=== PATIENT | female | born 1995 | race Hispanic/Latino ===

== ENCOUNTER 2017-10-18 11:53 | Emergency (ER) | payer MEDICAID, OTHER ==
[2017-10-18 13:06] LABS: Bilirubin Negative (Negative); Blood, Urine Negative (Negative); Glucose, Urine (Dipstick) Negative (Negative); Ketone, Urine Negative (Negative); Nitrite Negative (Negative); Protein, Urine (Dipstick) Negative (Neg-Trace); Urobilinogen 0.2 mg/dL (0.2-1.0)
== END 2017-10-18 13:41 | disposition home or self-care (01) ==
LOC: ERS 11:53
DX: Z04.3 Encounter for examination and observation following other accident (principal); Z3A.08 8 weeks gestation of pregnancy
CPT/HCPCS: 36415; 81003; 84702; 86900; 86901; 99284

== ENCOUNTER 2018-04-10 12:20 | Observation (INO) | payer OTHER ==
[2018-04-10 12:58] VITALS: BMI 23.0
--- NOTE | 2018-04-10 13:44 | PDOC.LDHP ---
Labor and Delivery H&P Chief complaint: contractions, other (Nausea/Vomiting) HPI: 22 y/o @ 31.5 WGA by 15.3 wk tigre presents with N/V that started last night and worsened ctx this AM. The patient reports that last night she suddenly started having N/V and has had 7 episodes of emesis since that time. She has been unable to tolerate PO. She reports that she has been having on and off ctx the past 4 days, but today they have become more regular and increased in intensity, so she decided to come in. She denies LOF, vaginal bleeding, and reports good movement. She reports vaginal d/c that is green and has been going on for about a week. She was supposed to be on metronidazole for BV that was diagnosed in the office by [facility], but she hasn't started taking it yet due to her N/V. She reports some RUQ pain that was sharp and only lasted a couple of minutes this afternoon. She denies any fevers, chills, diarrhea, dysuria. Current gestational age (weeks): 31 (31w5d) Due date: 06/07/18 Dating criteria: second trimester ultrasound Grav: 3 Para: 2 OB History Details: Term 's Current complications: other (anemia of ) Past Medical History: Anxiety Current medications: pre- vitamins (Not taking), iron, other (Buspirone, Sertraline) Social history: none - Physical Exam Vital signs reviewed and normal: yes General: NAD Heart: RRR Lungs: CTAB Abdomen: gravid Extremeties: no edema FHT: category 1, variability present [place] contractions every: 2-4 minutes - OB Labs Blood type: O RH: positive Antibody Screen: negative HIV: negative RPR: negative HEPSAg: negative Rubella: immune - Assessment 1. Rule-out Pre-term labor Patient is having ctx q2-4 minutes. This is likely 2/2 dehydration from N/V vs BV infection that has not yet been treated. -LR bolus -Will collect FFN and then send pending results of cervical check and cervical length -GC/CT -VP3 -UA -CBC, CMP, Lipase -Zofran prn nausea - monitoring -[place] 2. N/V, abdominal pain Likely 2/2 gastroenteritis, but will r/o more serious causes including pancreatitis, pre-e. -CBC -CMP -Lipase 3. Vaginal Discharge Recent diagnosis of BV that has not been treated with green discharge. -Will check VP3 -GC/CT -UA <Amalia Wilkes - Last Filed: 04/10/18 13:39> <Kristian Owens - Last Filed: 04/10/18 16:42> Allergies/Adverse Reactions: Allergies Allergy/AdvReac Type Severity Reaction Status Date / Time No Known Allergies Allergy Verified 10/13/16 08:19 Attending Addendum - Attending Addendum Date/Time: 04/10/18 1639 I personally evaluated the patient and discussed the management with Dr. Wilkes. I agree with and repeated the History, Examination, Assessment and Plan documented above with any addition or exceptions noted below. Pt contractions with exam help and SVE 1 cm. After IVFB contractions spaced out and no pain with any contractions. She is improving after zofran but still taking small amount of fluid. Will obs her overnight for continued hydration and antiemetics. Almost certainly VGE as her son with similar symptoms 2 days ago. Low suspicion at this time for UTI (no symptoms), biliary pathology, etc. If contractions worsen will recheck and manage PTL with appropriate consultation if indicated. Monitoring q shift. <Kristian Owens - Last Filed: 04/10/18 16:42>
[2018-04-10] MEDS ORDERED: Lactated Ringer's 1,000 ML IV SCH ×2 (13:45→14:45)
[2018-04-10 14:08] LABS: #Basophils 0.1 thou/uL (0.0-0.2); #Eosinphils 0.2 thou/uL (0.0-0.7); #Lymphocytes 1.6 thou/uL (1.20-3.40); #Monocytes 0.7 thou/uL (0.11-0.59); #Neutrophils 8.6 thou/uL (1.40-6.50); %Basophils 0.5 % (0.0-1.0); %Lymphocytes 14.4 % (28.0-48.0); %Monocytes 5.8 % (0.0-4.0); %Neutrophils 77.3 % (31.0-61.0); Mean Corpuscular HGB CONC 33.1 g/dL (32.0-36.0); Mean Corpuscular Volume 66.3 fl (77.0-87.0); Mean Platelet Volume 8.2 fL (7.4-10.4); Platelet Count 289 thou/uL (130-400); RBC Distribution Width 15.5 % (11.5-14.5); Red Blood Cell (RBC) Count 4.55 mill/uL (4.00-5.20); White Blood Cell (WBC) Count 11.2 thou/uL (4.8-10.8)
[2018-04-10] MEDS: Ondansetron ODT 8 MG TAB SL PRN (14:32)
[2018-04-10 14:33] LABS: ALT (SGPT) 9 U/L (8-55); AST (SGOT) 21 U/L (5-34); Albumin 3.6 g/dL (3.5-5.0); Alkaline Phosphatase 154 U/L (40-150); Anion Gap 14 mmol/L (10-20); BUN (Urea Nitrogen) 4 mg/dL (7.0-18.7); Bilirubin, Total 0.6 mg/dL (0.2-1.2); Calc. Creatinine Clearance 148 mL/min (70-130); Calcium 8.8 mg/dL (7.8-10.44); Carbon Dioxide 19 mmol/L (22-29); Chloride 105 mmol/L (98-107); Estimated GFR-MDRD Greater than 90; Globulin 3.3 g/dL (2.4-3.5); Glucose 81 mg/dL (70-105); Lipase 66 U/L (8-78); Potassium 3.8 mmol/L (3.5-5.1); Protein, Total 6.9 g/dL (6.0-8.3); Sodium 134 mmol/L (136-145)
[2018-04-10 15:20] LABS: Bilirubin Negative (Negative); Blood, Urine Negative (Negative); Clarity CLEAR (Clear); Glucose, Urine (Dipstick) Negative (Negative); Leukocyte Moderate (Negative); Nitrite Negative (Negative); Protein, Urine (Dipstick) Negative (Neg-Trace); Specific Gravity, Urine 1.008 (1.002-1.036); Urobilinogen 0.2 mg/dL (0.2-1.0); pH, Urine 6.5 (5.0-9.0)
[2018-04-10 15:22] LABS: Bacteria/HPF None Seen HPF (None Seen); Hyaline Casts/LPF 0-3 HYALINE CAST LPF (0-3 Hyaline); RBC/HPF 0-3 HPF (0-3); Squamous Epithelial 0-3 HPF (0-3)
--- NOTE | 2018-04-10 16:53 | PDOC.EVN ---
Event Note - Event Note Event Note: Patient has improved with IVF hydration, but is still having nausea. She is still showing ctx on the monitor, but is not feeling them and they have spaced out. Her cervical exam was . The VP3 showed marlin and gardnerella. She is s/p 2L LR boluses and 1 dose of zofran. She is tolerating some PO at this time, but having some nausea with it. She informed us that her son just had gastroenteritis 2 days ago. -Will obs overnight and give IVF and zofran prn nausea as pt still appears dry on exam and isn't tolerating PO very well yet. -Will treat vaginal infections with diflucan and metronidazole. <Amalia Wilkes - Last Filed: 04/10/18 16:49> Attending Addendum - Attending Addendum Date/Time: 04/11/18 0904 I personally evaluated the patient and discussed the management with Dr. Wilkes. I agree with the History, Examination, Assessment and Plan documented above with any addition or exceptions noted below. <Kristian Owens - Last Filed: 04/11/18 09:04>
[2018-04-10] MEDS: Lactated Ringer's 1,000 ML IV SCH (19:41)
[2018-04-11] MEDS: Fluconazole 100 MG TAB PO SCH ×2 (01:31→04:54)
[2018-04-11] MEDS: metroNIDAZOLE 500 MG TAB PO SCH ×2 (01:32→08:42)
[2018-04-11] MEDS: Lactated Ringer's 1,000 ML IV SCH (01:32)
[2018-04-11] MEDS: Ondansetron ODT 8 MG TAB SL PRN (04:54)
--- NOTE | 2018-04-11 07:23 | PDOC.FM ---
- Subjective Subjective: Patient reports improvement in her nausea with the Zofran. She does reports new onset diarrhea. She said she was able to tolerate some food and water last night. She reports that her ctx stopped altogether last night and never returned. She is having good movement. She denies any loss of fluids. She denies fevers, chills, or any further episodes of emesis. - Objective MAR Reviewed: Yes Vital Signs & Weight: Vital Signs (12 hours) Temp Pulse Resp BP BP 04/11/18 04:54 98.3 F 73 16 90/44 L 04/10/18 23:30 98.0 F 76 16 94/48 L 04/10/18 19:40 98.4 F 92 16 97/49 L Weight Weight 60.781 kg I&O: 04/10/18 04/11/18 04/12/18 06:59 06:59 06:59 Intake Total 2583 Balance 2583 Result Diagrams: 04/10/18 14:00 04/10/18 14:00 <Amalia Wilkes - Last Filed: 04/11/18 07:19> - Objective Vital Signs & Weight: Vital Signs (12 hours) Temp Pulse Resp BP BP 04/11/18 08:58 97.8 F 75 20 100/55 L 04/11/18 04:54 98.3 F 73 16 90/44 L 04/10/18 23:30 98.0 F 76 16 94/48 L Weight Weight 60.781 kg I&O: 04/10/18 04/11/18 04/12/18 06:59 06:59 06:59 Intake Total 2583 Balance 2583 Result Diagrams: 04/10/18 14:00 04/10/18 14:00 <Kristian Owens - Last Filed: 04/11/18 09:53> Phys Exam - Physical Examination Constitutional: NAD HEENT: moist MMs Respiratory: no wheezing, no rales, no rhonchi, clear to auscultation bilateral Cardiovascular: RRR, no significant murmur, no rub Gastrointestinal: soft, non-tender, positive bowel sounds gravid Musculoskeletal: no edema, pulses present Neurological: non-focal, moves all 4 limbs Psychiatric: normal affect, A&O x 3 Skin: normal turgor, cap refill <2 seconds <Amalia Wilkes - Last Filed: 04/11/18 07:19> Dx/Plan (1) Mild dehydration Code(s): E86.0 - DEHYDRATION Status: Acute (2) Gastroenteritis Code(s): K52.9 - NONINFECTIVE GASTROENTERITIS AND COLITIS, UNSPECIFIED Status : Acute (3) Bacterial vaginosis Code(s): N76.0 - ACUTE VAGINITIS; B96.89 - OTH BACTERIAL AGENTS THE CAUSE OF DISEASES CLASSD ELSWHR Status: Acute (4) Vulvovaginal candidiasis Code(s): B37.3 - CANDIDIASIS OF VULVA AND VAGINA Status: Acute - Plan Plan: 1. Mild Dehydration s/p 2L LR boluses. Was having ctx, but these have stopped. -LR @ 125, will d/c this AM -Encourage PO hydration -Zofran prn nausea 2. Gastroenteritis Pt had son with gastoenteritis two days prior. She had 7 episodes of emesis prior to admission and now is having diarrhea as well. -Zofran prn nausea -Regular diet -Encourage hydration 3. Bacterial Vaginosis -Flagyl 4. Vulvovaginal Candidiasis -Diflucan x1 Dispo: d/c home today with close outpatient f/u and return precautions <Amalia Wilkes - Last Filed: 04/11/18 07:19> Attending Addendum - Attending Addendum Date/Time: 04/11/18 0952 I personally evaluated the patient and discussed the management with Dr. Wilkes and team. I agree with and repeated the History, Examination, Assessment and Plan documented above with any addition or exceptions noted below. Pt improved, asking to go home. Same symptoms as son from 2-3 days ago. No f/ c. Nausea is improved. +FM, no contractions or LOF. Some cramping right after eating an omellete. NAD, resting comfortably RRR s M CTAB s w/r/r or inc wob BS+, NTTP, gravid No edema or cyanosis Ok for d/c. Rx for zofran. Continue flagyl. PV tx for candidiasis. Follow up gc/c. Strict ed precautions discussed and patient voices understanding. <Kristian Owens - Last Filed: 04/11/18 09:53>
[2018-04-11 08:59] VITALS: BP 100/55; TEMP 97.8
--- NOTE | 2018-04-11 21:15 | DIS-2 ---
DATE OF ADMISSION: 04/10/2018 DATE OF DISCHARGE: 04/01/2018 RESIDENT: Amalia Wilkes MD. ATTENNDING: Kristian Owens MD. CONSULTATIONS: None. PROCEDURES: None. PRIMARY DIAGNOSES: 1. Yiuf-be-wisozzqm dehydration. 2. Acute gastroenteritis. 3. Bacterial vaginosis. 4. Vulvovaginal candidiasis. 5. Rule out labor. DISCHARGE MEDICATIONS: 1. Zofran 8 mg sublingual b.i.d. p.r.n. 2. Flagyl 500 mg p.o. b.i.d. for 6 days. 3. vitamin 1 tab p.o. daily. 4. Ferrous sulfate 325 mg p.o. b.i.d. with meals. 5. Sertraline 25 mg p.o. daily. 6. Buspirone 7.5 mg p.o. p.r.n. DISCONTINUED MEDICATIONS: None. HISTORY OF PRESENT ILLNESS AND HOSPITAL COURSE: This is a 22-year-old G3, P2-0-0-2, who was admitted at 31 weeks 5 days gestational age by 13.3-week sono who presented with nausea and vomiting. The pa tient was unable to tolerate p.o. and after arriving also developed diarrhea. The patient was found to have contractions that were regular and painful and were every 2-4 minutes. The patient also had a green vaginal discharge for about a week and had been diagnosed with bacterial vaginosis at her [facility] physician's office. The patient was ruled out for labor with a cervical check that was 1, 20 and -3. The patient was given 2 LR boluses and her contractions slowed down and got to wh ere she was not feeling them at all. The patient had labs drawn that showed anemia with hemoglobin o f 10 as well as BV and Chani on her VP3. The patient was treated with Zofran as needed for nausea and was put on LR at 125 for maintenance fluids and was given Flagyl and Diflucan for the vaginal inf ections. The patient improved significantly and stopped zunilda altogether. She was observed ov ernight to make sure that she was able to tolerate p.o. and by morning, she was able to be discharged home with strict return precautions and instructions to finish a prescription for Flagyl. DISPOSITION: Stable. DISCHARGE INSTRUCTIONS: 1. Location: Home. 2. Diet: Regular. 3. Activity: As tolerated. 4. Followup: With Dr. Monroe at [facility] within 7 days.
[2018-04-13 21:13] LABS: GC by PCR Not Detected (NotDetected)
[2018-04-14 12:03] LABS: Chlamydia by PCR Not Detected (NotDetected)
== END 2018-04-11 12:00 | disposition home health service (06) ==
LOC: L&D/OP 12:20 → 3SW 17:11
PROVIDERS: ADMIT Emergency Medicine; ATTEND Emergency Medicine
DX: O99.613 Diseases of the digestive system complicating pregnancy, third trimester (principal); K52.9 Noninfective gastroenteritis and colitis, unspecified; O99.283 Endocrine, nutritional and metabolic diseases complicating pregnancy, third trimester; E86.0 Dehydration; O23.593 Infection of other part of genital tract in pregnancy, third trimester; B37.3 Candidiasis of vulva and vagina; Z3A.31 31 weeks gestation of pregnancy; Z79.899 Other long term (current) drug therapy
CPT/HCPCS: 59025; 80053; 81001; 83690; 85025; 87480; 87491; 87510; 87591; 87660; 96360; 96361; 99285; G0378

== ENCOUNTER 2018-05-13 12:48 | Day surgery (SDC) | payer OTHER ==
[2018-05-13 13:22] LABS: #Basophils 0.1 thou/uL (0.0-0.2); #Eosinphils 0.2 thou/uL (0.0-0.7); #Lymphocytes 2.7 thou/uL (1.20-3.40); #Neutrophils 6.8 thou/uL (1.40-6.50); %Basophils 0.6 % (0.0-1.0); %Eosinophils 2.2 % (0.0-10.0); %Lymphocytes 24.9 % (28.0-48.0); %Neutrophils 63.2 % (31.0-61.0); Hemoglobin 8.8 g/dL (12.0-16.0); Mean Corpuscular HGB CONC 32.5 g/dL (32.0-36.0); Mean Corpuscular Hemoglobin 20.4 pg (25.0-35.0); Mean Platelet Volume 8.8 fL (7.4-10.4); Platelet Count 299 thou/uL (130-400); RBC Distribution Width 15.9 % (11.5-14.5); White Blood Cell (WBC) Count 10.8 thou/uL (4.8-10.8)
[2018-05-13 13:40] LABS: Anisocytosis SLIGHT = 6-15 cells (100X) (0-5/hpf); Hypochromia SLIGHT = 6-15 cells (100X) (0-5/hpf); MDiff Complete? YES; Microcytosis SLIGHT = 6-15 cells (100X) (0-5/hpf); PLT Morphology Comment Appears Adequate; Polychromasia MODERATE = 3-4 cells (100X) (0-2/hpf)
[2018-05-13 13:44] LABS: ALT (SGPT) 7 U/L (8-55); AST (SGOT) 19 U/L (5-34); Albumin 3.4 g/dL (3.5-5.0); Alkaline Phosphatase 168 U/L (40-150); Anion Gap 11 mmol/L (10-20); BUN (Urea Nitrogen) 5 mg/dL (7.0-18.7); Bilirubin, Total 0.3 mg/dL (0.2-1.2); Calc. Creatinine Clearance 0 mL/min (70-130); Calcium 8.7 mg/dL (7.8-10.44); Carbon Dioxide 22 mmol/L (22-29); Chloride 107 mmol/L (98-107); Estimated GFR-MDRD Greater than 90; Globulin 3.7 g/dL (2.4-3.5); Glucose 84 mg/dL (70-105); Potassium 4.2 mmol/L (3.5-5.1); Protein, Total 7.1 g/dL (6.0-8.3); Sodium 136 mmol/L (136-145)
[2018-05-13 14:33] VITALS: BMI 26.4
[2018-05-13 15:34] LABS: Amnisure Test No Membranes Rupture (No Rupture)
[2018-05-13 15:35] LABS: Amnisure Internal Control QC ACCEPTABLE (ACCEPTABLE)
--- NOTE | 2018-05-13 15:38 | PDOC.LDHP ---
Labor and Delivery H&P Chief complaint: loss of fluid, abdominal pain, other HPI: 22yo at 36.3wk by 15.3wk US initially presented to [facility] ED with c/o SOB. Labs wnl aside from hgb 8.8 and cardiac etiology ruled out. She then was sent up to L&D for evaluation of lower abd pain, back pain, pressure with urination, and 2 episodes of leaking "cloudy wet stuff" after urination that began last night. Denies any discharge, VB, n/v/d/c, fevers. Feels occasional B- H ctx but not regular or painful. Endorses nml FM. Current gestational age (weeks): 36 (3 days) Due date: 06/07/18 Dating criteria: second trimester ultrasound (15.3WK) Grav: 3 Para: 2 OB History Details: 2 prior term , no antepartum complication Current complications: other (anemia of ) Abnormal US findings: No Past Medical History: anxiety (has been off meds since OB visit last month) Current medications: none (has not been compliant with PNV or iron) Previous surgical history: none Social history: none - Physical Exam Vital signs reviewed and normal: yes (VSS) General: NAD, resting Heart: RRR Lungs: nonlabored breathing Abdomen: NTTP Extremeties: no edema FHT: category 1 (mod variability, + accels, no decels) [place] contractions every: occasional, irregular w/ uterine irritability - Vaginal Exam cm dilated: 1 Effacement: 25% Station: -3 - OB Labs Blood type: O RH: positive Antibody Screen: negative HIV: negative RPR: negative HEPSAg: negative 1 hour GCT: negative GBS: positive Urine drug screen: not done Rubella: immune - Plan Plan: observation in L&D -: 22yo at 36.3wk by 15.3wk US here for multiple compliants- 1) LOF r/o ROM- check amnisure and urinalysis/ UCx. no discharge noted. 2) Late IUP- uterine irritability but not regular ctx. IVF bolus, push po fluid intake. no signs of active labor currently. continue to monitor. 3) anemia in - counseling psychologist on need for iron therapy compliance 4) round ligament pain- tylenol. <Amalia Peñaloza - Last Filed: 05/13/18 15:54> <Arpita Calvillo - Last Filed: 05/14/18 11:44> Allergies/Adverse Reactions: Allergies Allergy/AdvReac Type Severity Reaction Status Date / Time No Known Allergies Allergy Verified 05/13/18 14:13 Attending Addendum - Attending Addendum Date/Time: 05/13/18 9314 I personally evaluated the patient and discussed the management with Dr. Peñaloza I agree with the History, Examination, Assessment and Plan documented above with any addition or exceptions noted below. Repeat SVE unchanged x 2. Precautions discussed. Earlier event appears to be related to anxiety and panic attacks. Will need follow up with PCP later this week to address. No concerns related to at this time. Ryne <Arpita Calvillo - Last Filed: 05/14/18 11:44>
[2018-05-13] MEDS ORDERED: Sodium Chloride 0.9% 1,000 ML IV SCH (15:45)
[2018-05-13] MEDS ORDERED: Acetaminophen 500 MG TAB PO SCH (16:00)
[2018-05-13 16:09] LABS: Bilirubin Negative (Negative); Blood, Urine Negative (Negative); Clarity CLEAR (Clear); Glucose, Urine (Dipstick) Negative (Negative); Leukocyte Negative (Negative); Nitrite Negative (Negative); Protein, Urine (Dipstick) Negative (Neg-Trace); pH, Urine 6.5 (5.0-9.0)
--- NOTE | 2018-05-13 16:16 | PDOC.EVN ---
Event Note - Event Note Event Note: Pt noted pain to improve with tylenol and IVF bolus of NS. improved uterine irritability. Cat I strip throughout her stay in L&D. Amnisure neg, U/A negative. Counseled on home tx for aches/pains of including increased po fluid intake and tylenol prn pain. Counseled on taking home po iron and pnv. GBS Positive per clinic swab. F/U with PCP as scheduled next week. <Amalia Peñaloza - Last Filed: 05/13/18 16:14> Attending Addendum - Attending Addendum Date/Time: 05/13/18 5826 I personally evaluated the patient and discussed the management with Dr. Peñaloza I agree with the History, Examination, Assessment and Plan documented above with any addition or exceptions noted below. Ok for d/c to home. Status improved. Cervical exam unchanged. Follow up with PCP later this week to discuss anxiety. MercedesMD <Arpita Calvillo - Last Filed: 05/14/18 11:48>
== END 2018-05-13 17:21 | disposition home or self-care (01) ==
LOC: ERS 12:48 → L&D/OP 13:55
PROVIDERS: ATTEND Student in an Organized Health Care Education/Training Program
DX: O99.89 Other specified diseases and conditions complicating pregnancy, childbirth and the puerperium (principal); R10.9 Unspecified abdominal pain; O99.013 Anemia complicating pregnancy, third trimester; Z3A.36 36 weeks gestation of pregnancy
CPT/HCPCS: 36415; 80053; 81003; 84112; 85025; 87086; 93005; 96360; 96361; 99285

== ENCOUNTER 2018-05-23 15:38 | Day surgery (SDC) | payer OTHER ==
--- NOTE | 2018-05-23 16:14 | PDOC.LDHP ---
Addendum entered and electronically signed by Dalia Kebede MD 05/23/18 18: 50: Amnisure negative. VP3 pending. Will discharge patient. Strict return precautions given (including if pt experiences loss of fluid, vaginal bleeding, contractions). Original Note: Labor and Delivery H&P Chief complaint: loss of fluid, decreased movement HPI: Patient is a 22 year old @ 37.6 weeks GA by 15 week US who complains of gush of clear fluid that occurred just after going to the bathroom on Saturday night. She states that she feels like she has been leaking fluid since then. She also complains of decreased movement today. She denies vaginal bleeding and contractions. Current gestational age (weeks): 37 Due date: 06/07/18 Dating criteria: first trimester ultrasound Grav: 3 Para: 2 Current complications: none Abnormal US findings: No (Male fetus) Past Medical History: Gestational anemia Current medications: pre- vitamins Social history: none - Physical Exam Vital signs reviewed and normal: yes General: NAD Heart: RRR Lungs: CTAB Abdomen: NTTP FHT: category 1 [place] contractions every: Irregular - OB Labs Blood type: O RH: positive Antibody Screen: positive HIV: negative 1 hour GCT: negative GBS: positive Rubella: immune - Assessment L&D Assessment: term rupture in membranes (ROM rule out) Sterile Speculum exam revealed copious thin, milky-white discharge filling vaginal vault. Cervix appears open. - Plan Plan: observation in L&D -: - Will rule out prolonged rupture of membranes with Amnisure. - No pooling of clear fluid seen on sterile speculum exam, however discharge may obscure exam. - If amnisure is negative will perform fern test. - BPP/NST for decreased movement. <Dalia Kebede - Last Filed: 05/23/18 16:41> <Arpita Calvillo - Last Filed: 05/23/18 19:05> Allergies/Adverse Reactions: Allergies Allergy/AdvReac Type Severity Reaction Status Date / Time No Known Allergies Allergy Verified 05/13/18 14:13 Attending Addendum - Attending Addendum Date/Time: 05/23/18 1903 I personally evaluated the patient and discussed the management with Dr. Kebede I agree with the History, Examination, Assessment and Plan documented above with any addition or exceptions noted below. Through exam performed. No evidence of ROM. NADEEM = 14 cm. Amnisure negative. Valsalva negative. No pooling on spec. Fundus nontender. No bleeding. NST reactive. Occasional contractions. Os 1 cm. Will d/c patient to home. Strict precautions discussed. Patient to return with any concerns. Ryne <Arpita Calvillo - Last Filed: 05/23/18 19:05>
[2018-05-23 17:02] LABS: Amnisure Internal Control QC ACCEPTABLE (ACCEPTABLE); Amnisure Test No Membranes Rupture (No Rupture)
--- NOTE | 2018-05-23 17:56 | ULT ---
NONSTRESS BIOPHYSICAL PROFILE: 05/23/18 HISTORY: Decreased movement. COMPARISON: None. TECHNIQUE: Nonstress biophysical profile is performed. FINDINGS: Single intrauterine gestation with vertex presentation. Suboptimal evaluation of the cervix due to sh adowing. heart tones with a heart rate between 128 and 133 beats per minute. Amniotic fluid index is 14 cm. Nonstress biophysical profile. tone - 2. breathing -2. movement - 2. Amniotic fluid - 2. Total score 8 out of 8. IMPRESSION: Nonstress biophysical profile with a total score 8 out of 8. POS: [facility]
[2018-05-23 18:33] LABS: Bilirubin Small (Negative); Blood, Urine Negative (Negative); Clarity CLOUDY (Clear); Glucose, Urine (Dipstick) Negative (Negative); Leukocyte Trace (Negative); Nitrite Negative (Negative); Protein, Urine (Dipstick) Trace mg/dL (Neg-Trace); Specific Gravity, Urine 1.026 (1.002-1.036)
[2018-05-23 18:34] LABS: Bacteria/HPF None Seen HPF (None Seen); WBC/HPF 0-3 HPF (0-3)
[2018-05-23 18:39] LABS: Pathc Cast-AUWi Flag 3.48 (0-2.49)
[2018-05-23 18:47] LABS: Crystals/HPF 2+ CA OXALATE HPF (Negative); Hyaline Casts/LPF 0-3 HYALINE CAST LPF (0-3 Hyaline); Other Casts/LPF None Seen LPF (0-3 Hyaline)
[2018-05-23 18:48] LABS: Transitional Epithelial 0-3 HPF (0-3)
== END 2018-05-23 19:05 | disposition home or self-care (01) ==
LOC: L&D/OP 15:38
PROVIDERS: ATTEND Student in an Organized Health Care Education/Training Program
DX: O99.89 Other specified diseases and conditions complicating pregnancy, childbirth and the puerperium (principal); N89.8 Other specified noninflammatory disorders of vagina; O36.8130 Decreased fetal movements, third trimester, not applicable or unspecified; Z79.899 Other long term (current) drug therapy; Z3A.37 37 weeks gestation of pregnancy
CPT/HCPCS: 76819; 81003; 81015; 84112; 87480; 87510; 87660; 99285

== ENCOUNTER 2018-05-29 14:29 | Inpatient (IN) | payer OTHER ==
--- NOTE | 2018-05-29 16:02 | PDOC.LDHP ---
Addendum entered and electronically signed by Celi Alatorre MD 05/29/18 16:20 : Cervix check @ 1615 is 4.5/75%/-2. Will admit and start PCN PPX. Re-assess in 2 hours unless indicated sooner. Original Note: Labor and Delivery H&P HPI: Patient is a 22 yr old F at 38.1wks by 15.1 wk US. Patient began experiencing painful contractions since 0900 this morning that were about 5 min apart. They have become closer to 2-3 min apart in the last few hours. The patient denies any loss of fluid or leakage of blood. She is GBS (+) and a history of quick labors. She denies headache, fever, changes in vision, or lower extremity edema. Current gestational age (weeks): 38 Due date: 06/07/18 Dating criteria: first trimester ultrasound Grav: 3 Para: 2 OB History Details: 2 prior pregnancies. No complications. History for being around 4 hours total. GBS (+) Current complications: none Abnormal US findings: No Past Medical History: Anxiety - currently not experiencing any anxiety Current medications: pre- vitamins, iron (Patient stopped taking iron about a month ago due to side effects) Previous surgical history: none Social history: none - Physical Exam Vital signs reviewed and normal: yes General: NAD, resting, breathing through contractions Heart: RRR Lungs: nonlabored breathing Abdomen: gravid Extremeties: no edema FHT: category 1 [place] contractions every: 2-3 min - Vaginal Exam cm dilated: 4 Effacement: 50% Station: -2 - OB Labs Blood type: O RH: positive Antibody Screen: negative HIV: negative RPR: negative HEPSAg: negative GBS: positive Urine drug screen: negative Rubella: immune - Assessment L&D Assessment: term patient in labor - Plan Plan: observation in L&D -: 1. Rule out Labor - continue to monitor FHT - recheck cervix at 1615 - if cervical change, admit and start GBS prophylaxis <Celi Alatorre - Last Filed: 05/29/18 16:07> <Kristian Owens - Last Filed: 05/29/18 16:25> Allergies/Adverse Reactions: Allergies Allergy/AdvReac Type Severity Reaction Status Date / Time No Known Allergies Allergy Verified 05/13/18 14:13 Attending Addendum - Attending Addendum Date/Time: 05/29/18 9852 I personally evaluated the patient and discussed the management with resident team. I agree with and repeated the History, Examination, Assessment and Plan documented above with any addition or exceptions noted below. Pt w/ ctx since 1029, no LOF. +BV in the recent past but has not been taking medications. +Cervical change in OBT, will admit and provide PCN for GBS+ status. T cat 1. Anticipate . <Kristian Owens - Last Filed: 05/29/18 16:25>
[2018-05-29] MEDS ORDERED: Promethazine HCl 25 MG/ML VIAL IM PRN (16:15)
[2018-05-29] MEDS ORDERED: Docusate 100 MG CAP PO PRN (16:15)
[2018-05-29] MEDS ORDERED: Ondansetron HCl/PF 4 MG/2 ML Vial IVP PRN (16:15)
[2018-05-29] MEDS ORDERED: Lidocaine 1% (PF) 30 ML VIAL SC PRN (16:19)
[2018-05-29] MEDS ORDERED: NS / Oxytocin 40 units/1000ml 1,000 ML IV PRN (16:19)
[2018-05-29] MEDS ORDERED: Penicillin G Potassium 5 MILL.UNITS in Sodium Chloride 0.9% 100 ML IVPB SCH (16:30)
[2018-05-29] MEDS ORDERED: Penicillin G Potassium 2.5 UNITS in Syringe 0 ML IVPB SCH (17:00)
[2018-05-29 17:17] LABS: Hemoglobin 9.2 g/dL (12.0-16.0); Mean Corpuscular HGB CONC 31.5 g/dL (32.0-36.0); Mean Corpuscular Hemoglobin 19.4 pg (25.0-35.0); Mean Corpuscular Volume 61.7 fL (78.0-98.0); Mean Platelet Volume 10.9 fL (7.4-10.4); Platelet Count 298 thou/uL (130-400); RBC Distribution Width 16.4 % (11.5-14.5); Red Blood Cell (RBC) Count 4.72 mill/uL (4.00-5.20); White Blood Cell (WBC) Count 11.7 thou/uL (4.8-10.8)
[2018-05-29 17:47] VITALS: BMI 27.2
[2018-05-29 17:56] LABS: HBSAg Index 0.22 S/CO (0-0.99); Hep B Surf Ag Non-Reactive S/CO (NonReactive); Syphilis Antibody Nonreactive (Nonreactive); Syphilis Antibody Index 0.04 S/CO (<1.00 Non-Reactive)
[2018-05-29 18:00] VITALS: BP 112/62
--- NOTE | 2018-05-29 18:58 | PDOC.LDPN ---
Labor & Delivery Progress Note - Subjective Subjective: comfortable, painful contractions - Objective Vital signs reviewed and normal: yes General: NAD, resting Uterine fundus: non tender Dilation: 4 Effacement: 75% Station: -2 FHT: category 1 (135/mod/+accels/no decels) [place] contractions every: 2-3min - Assessment (1) Term Code(s): Z34.80 - ENCOUNTER FOR SUPRVSN OF NORMAL , UNSP TRIMESTER Current Visit: Yes Status: Acute (2) Positive GBS test Code(s): B95.1 - STREPTOCOCCUS, GROUP B, CAUSING DISEASES CLASSD ELSWHR Current Visit: Yes Status: Acute (3) Anemia affecting Code(s): O99.019 - ANEMIA COMPLICATING , UNSPECIFIED TRIMESTER Current Visit: Yes Status: Acute Comment: Patient with Hgb drop from >8 to 7.2. Currently asymptomatic. Continue Feosol and Colace for 6 weeks. Bleeding currently as expected. EBL from 250cc. -: 22yo @ 38.1 wks by 15wk US presenting in labor 1. Term - Doing well, painful contractions - Not desiring epidural at this time - Cont expectant management - No labor augmentation - 3T labs neg 2. GBS + - First dose penicillin given, next dose at 2029 3. Anemia of - Hgb 9.2 - Typed and Screened
--- NOTE | 2018-05-29 20:38 | PDOC.LDPN ---
Labor & Delivery Progress Note - Subjective Subjective: comfortable, painful contractions - Objective Vital signs reviewed and normal: yes General: NAD, other (Standing near bed) Uterine fundus: non tender Dilation: 4.5 Effacement: 75% Station: -2 FHT: category 1 (135/mod/+ accel/no decel) [place] contractions every: 2-3min - Assessment (1) Term Code(s): Z34.80 - ENCOUNTER FOR SUPRVSN OF NORMAL , UNSP TRIMESTER Current Visit: Yes Status: Acute (2) Positive GBS test Code(s): B95.1 - STREPTOCOCCUS, GROUP B, CAUSING DISEASES CLASSD ELSWHR Current Visit: Yes Status: Acute (3) Anemia affecting Code(s): O99.019 - ANEMIA COMPLICATING , UNSPECIFIED TRIMESTER Current Visit: Yes Status: Acute Comment: Patient with Hgb drop from >8 to 7.2. Currently asymptomatic. Continue Feosol and Colace for 6 weeks. Bleeding currently as expected. EBL from 250cc. Plan: continue plan of care -: 22yo @ 38.1 wks by 15wk US presenting in labor 1. Term - Doing well, painful contractions - Not desiring epidural at this time - Cont expectant management, encouraged to start walking - No labor augmentation - 3T labs neg 2. GBS + - 2 doses penicillin given, next dose at 0030 05/30 3. Anemia of - Hgb 9.2 - Typed and Screened
[2018-05-29] MEDS ORDERED: Penicillin G 2.5 MILL.units 50 ML IVPB SCH (21:00)
[2018-05-29 21:50] VITALS: TEMP 98.5
--- NOTE | 2018-05-29 23:12 | PDOC.LDPN ---
Labor & Delivery Progress Note - Subjective Subjective: comfortable, painful contractions - Objective Vital signs reviewed and normal: yes Uterine fundus: non tender Dilation: 4/40/-2 FHT: category 1 [place] contractions every: 4-5 min Plan: other -: 22 yr old at 38.5 wks by 15.1 wk sono in latent labor. Term in latent labor -No cervical change in 8 hours -No indication to induce labor -provided patient's with options to go home or stay for pain meds and see if labor progresses. -Patient opted to go home with precautions -Return for decreased movement, vaginal bleeding, painful contractions 5 mins apart, or LOF. -Patient voiced understanding and willingness to comply. -She has follow up with her PCP tomorrow. -encouraged to hydrate with water GBS positive -stop abx at this time and restart when patient presents in active labor. <Amalia Rogers - Last Filed: 05/29/18 23:07> Attending Addendum - Attending Addendum Date/Time: 05/30/182 I personally evaluated the patient and discussed the management with Dr. Rogers I agree with the History, Examination, Assessment and Plan documented above with any addition or exceptions noted below- 22 year old @38 5/7 weeks presented c/o ctx. Denies any LOF, VB. (+) FM. Initial exam: 4/60/-2; monitored and rechecked after an hour and felt to be 4.5/70/-2. Patient admitted at that point and GBS prophylaxis started. Since then patient walked for 2 hours, rechecks have been unchanged with ctx being q3-7 minutes. Discussed with patient that she is in latent labor and options would be to go home and return when contractions more frequent and stronger or give dose of iv pain medications to allow relaxation and possible progression of labor versus cessation of contractions. Patient decided to go home. <Cheli Fong - Last Filed: 05/30/18 00:33>
== END 2018-05-30 00:25 | disposition home health service (06) | DRG 781 ==
LOC: L&D/OP 14:29 → L&D 17:39
PROVIDERS: ADMIT Family Medicine; ATTEND Family Medicine
DX: O99.820 Streptococcus B carrier state complicating pregnancy (principal); Z3A.38 38 weeks gestation of pregnancy
CPT/HCPCS: 36415; 85027; 86780; 86850; 86900; 86901; 87340; 99285; A4216; J2540; J7050

== ENCOUNTER 2018-05-30 01:57 | Inpatient (IN) | payer OTHER ==
[2018-05-30] MEDS ORDERED: Lidocaine 1% (PF) 30 ML VIAL SC PRN (02:07)
[2018-05-30] MEDS ORDERED: Promethazine HCl 25 MG/ML VIAL IM PRN ×2 (02:16→04:23)
[2018-05-30] MEDS ORDERED: Ondansetron HCl/PF 4 MG/2 ML Vial IVP PRN ×2 (02:16→04:23)
[2018-05-30] MEDS: Lactated Ringer's 1,000 ML IV SCH ×3 (02:30→09:25)
[2018-05-30] MEDS: Penicillin G 2.5 MILL.units 2.5 MILL.UNITS in Premix Bag 1 BAG IVPB SCH ×3 (02:45→10:09)
[2018-05-30 02:58] VITALS: BMI 26.8
[2018-05-30 03:00] LABS: Hemoglobin 8.4 g/dL (12.0-16.0); Mean Corpuscular HGB CONC 32.3 g/dL (32.0-36.0); Mean Corpuscular Hemoglobin 19.6 pg (25.0-35.0); Mean Corpuscular Volume 60.8 fL (78.0-98.0); Mean Platelet Volume 10.3 fL (7.4-10.4); Platelet Count 280 thou/uL (130-400); RBC Distribution Width 16.5 % (11.5-14.5); Red Blood Cell (RBC) Count 4.27 mill/uL (4.00-5.20); White Blood Cell (WBC) Count 12.1 thou/uL (4.8-10.8)
[2018-05-30 03:25] LABS: HBSAg Index 0.26 S/CO (0-0.99); Hep B Surf Ag Non-Reactive S/CO (NonReactive)
[2018-05-30] MEDS ORDERED: Bupivacaine 0.75% 13.4 ML, fentaNYL Citrate/PF 400 MCG in Sodium Chloride 0.9% 78.6 ML EPIDURAL SCH (03:30)
[2018-05-30] MEDS ORDERED: DISCONTINUE ALL PREVIOUS NARCOTICS FS SCH (03:30)
--- NOTE | 2018-05-30 03:40 | PDOC.LDPN ---
Labor & Delivery Progress Note - Subjective Subjective: painful contractions - Objective General: breathing through contractions Uterine fundus: non tender SVE: 6/80/-1 Dilation: 6 FHT: category 1 (120/mod/+accels/no decels) [place] contractions every: 6-8min Plan: continue plan of care -: 22yo @ 38.6 wks by 15wk US presenting in labor 1. Term - Doing well, painful contractions - Patient would like epidural - Cont expectant management - No labor augmentation - 3T labs neg 2. GBS + - 3 doses penicillin given, next dose at 0630 05/30 3. Anemia of - Hgb 9.2 - Typed and Screened
[2018-05-30] MEDS ORDERED: Hydrocerin (Eucerin) Cream 120 gm Jar TOP PRN (04:23)
[2018-05-30] MEDS ORDERED: ePHEDrine/0.9% NaCl/PF SYRINGE 50 mg/10 ml SLOW IVP PRN (04:23)
[2018-05-30] MEDS ORDERED: Naloxone HCl 0.4 mg/ml Vial IVP PRN ×2 (04:23)
[2018-05-30] MEDS ORDERED: Lactated Ringer's 500 ML IV PRN (04:23)
[2018-05-30] MEDS ORDERED: Acetaminophen 325 MG TAB PO PRN (04:23)
[2018-05-30] MEDS ORDERED: diphenhydrAMINE 50 MG/ML VIAL IVP PRN (04:23)
[2018-05-30] MEDS ORDERED: Communication Order-Pharmacy FS SCH (04:30)
[2018-05-30] MEDS ORDERED: fentaNYL Citrate/PF 400 MCG, Bupivacaine 0.5% 20 ML in Sodium Chloride 0.9% 72 ML EPIDURAL SCH (04:30)
--- NOTE | 2018-05-30 06:26 | PDOC.LDPN ---
Labor & Delivery Progress Note - Subjective Subjective: comfortable - Objective Vital signs reviewed and normal: yes General: NAD, resting Uterine fundus: non tender SVE: 7/90%/-1 Dilation: 7 Effacement: 90% Station: -1 FHT: category 1 [place] contractions every: 8-9 min Other exam findings: bloody show - Assessment (1) Term Code(s): Z34.80 - ENCOUNTER FOR SUPRVSN OF NORMAL , UNSP TRIMESTER Current Visit: Yes Status: Acute Plan: continue plan of care -: Patient is a 22 yo F at 38.5wks who continues in active labor. 1. Term - Epidural in place - augmentation of labor with pitocin: start at 2milli units/min and titrate per protocol - recheck at 0900 2. GBS (+) - on 4th dose of PCN - discontinue after this dose 3. Anemia of - HGB on 05/30/18 is 8.4 - typed and screened - continue to monitor <Celi Alatorre - Last Filed: 05/30/18 06:49> Attending Addendum - Attending Addendum Date/Time: 05/30/18 0942 I personally evaluated the patient and discussed the management with Dr. Alatorre I agree with the History, Examination, Assessment and Plan documented above with any addition or exceptions noted below. Pt AROMed for moderate amount of clear fluid at 0805. Cvx 7/90/-1 at that time. FHT 130/moderate variability/accels present/no decels. Cat I FHT GBS positive-continue prophylaxis until delivery On pitocin for labor augmentation Anticipate vaginal delivery <Caro Antonio - Last Filed: 05/30/18 09:44>
--- NOTE | 2018-05-30 06:44 | PDOC.LDPN ---
Labor & Delivery Progress Note - Subjective Subjective: painful contractions - Objective Vital signs reviewed and normal: yes General: NAD, resting Uterine fundus: non tender SVE: /-1 FHT: category 1 [place] contractions every: 6-8min - Assessment (1) Term Code(s): Z34.80 - ENCOUNTER FOR SUPRVSN OF NORMAL , UNSP TRIMESTER Current Visit: Yes Status: Acute Plan: continue plan of care -: 22yo @ 38.6 wks by 15wk US presenting in labor 1. Term - Doing well, painful contractions - Epidural placed - Cont expectant management - No labor augmentation - Considered AROM, but head found to be ballotable therefore aborted procedure - 3T labs neg 2. GBS + - 3 doses penicillin given, next dose at 0630 05/30 3. Anemia of - Hgb 9.2 - Typed and Screened
[2018-05-30] MEDS ORDERED: NS w/ Oxytocin 10 units 500 ML IV SCH (07:00)
[2018-05-30] MEDS ORDERED: NS w/ Oxytocin 10 units 500 ML ONE (07:01)
--- NOTE | 2018-05-30 10:00 | PDOC.LDPN ---
Labor & Delivery Progress Note - Subjective Subjective: comfortable - Objective Vital signs reviewed and normal: yes General: NAD Uterine fundus: non tender SVE: 9.5/100/0 Dilation: 9.5 Effacement: 100% Station: 0 FHT: category 2, variability present [place] contractions every: 2 min - Assessment (1) Term Code(s): Z34.80 - ENCOUNTER FOR SUPRVSN OF NORMAL , UNSP TRIMESTER Current Visit: Yes Status: Acute Plan: continue plan of care -: Patient is 22 yo F who continues in active labor 1. Term - Pitocin was at 2mill units/min but turned off by nursing due to heart decel - check cervix again in 30 min 2. GBS (+) - PCN X 4 3. Anemia of - HGB 8.4 - will continue to monitor
[2018-05-30] MEDS: NS / Oxytocin 40 units/1000ml 1,000 ML IV PRN ×2 (10:26→12:23)
--- NOTE | 2018-05-30 10:39 | PDOC.OPDEL ---
OB Operative/Delivery Note Delivery Dr/Surgeon: Landry Assist: Paco Monroe Pre-Delivery Diagnosis: active labor Procedure/Post Delivery Dx: spontaneous vaginal delivery Weeks gestation: 38 Anesthesia: epidural - Findings A Sex: male (Time of 1023; delivered OP, no nuchal cord. Cord blood collected. Placenta intact in the [place] presentation with a 3 vessel cord noted. Fundal massage was performed and the fundus was firm. The cervix and vagina were inspected and found to be free of lacerations.) - 1 min: 9 - 5 min: 9 - Additional Findings/Plan Placenta delivered: spontaneous Repaired Obstetrical Laceration: none Estimated blood loss: 400 Post delivery plan: routine recovery <Celi Alatorre - Last Filed: 05/30/18 10:38> Attending Addendum - Attending Addendum Date/Time: 05/30/18 1122 I personally evaluated the patient and discussed the management with Drs. Alatorre and Fer I agree with the History, Examination, Assessment and Plan documented above with any addition or exceptions noted below. I was present for/supervised and assisted in the uncomplicated . Baby delivered in direct OA position, not OP as noted above. <Caro Antonio - Last Filed: 05/30/18 11:24>
[2018-05-30] MEDS ORDERED: Lanolin Ointment 7 GM TUBE TOP PRN (10:44)
[2018-05-30] MEDS ORDERED: Bisacodyl 10 MG SUPP PR PRN (10:44)
[2018-05-30] MEDS ORDERED: Milk Of Magnesia 30 ML UDCUP PO PRN (10:44)
[2018-05-30] MEDS ORDERED: Preparation H Ointment 28 GM TUBE PR PRN (10:44)
[2018-05-30] MEDS ORDERED: Adacel (T-DAP) 0.5 ML VIAL IM ONE (10:44)
[2018-05-30] MEDS ORDERED: NS / Oxytocin 40 units/1000ml 1,000 ML IV SCH (10:45)
[2018-05-30] MEDS ORDERED: Oxytocin 10 UNITS/ML VIAL ONE (12:10)
[2018-05-30] MEDS ORDERED: Oxytocin 10 UNITS/ML VIAL IM SCH (12:15)
[2018-05-30] MEDS: Ibuprofen 800 MG TAB PO SCH ×2 (12:29→21:15)
[2018-05-30] MEDS ORDERED: Lidocaine 2% MPF 10 ML AMP (For Epidural Use) ONE (14:53)
[2018-05-30] MEDS: HYDROcodone/Acetaminophen 5/325 mg Tablet PO PRN (17:17)
[2018-05-30] MEDS: Ferrous Sulfate 325 MG TAB PO SCH (17:18)
[2018-05-30] MEDS: Docusate Calcium (SURFAK) 240 MG CAP PO SCH (21:15)
[2018-05-31] MEDS: Ibuprofen 800 MG TAB PO SCH ×3 (05:19→21:29)
[2018-05-31 05:33] LABS: Hemoglobin 6.8 g/dL (12.0-16.0)
[2018-05-31] MEDS: HYDROcodone/Acetaminophen 5/325 mg Tablet PO PRN ×2 (07:10→21:29)
--- NOTE | 2018-05-31 07:51 | PDOC.PP ---
Post Progress Note Post Day #: 1 Subjective: Patient eating and sleeping well. Her pain is controlled with ibuprofen JESSIE and [place] PRN. She has been walking around and denies any SOB, CP, dizziness, or palpitations. She has urinated and is passing gas, but is yet to stool since delivery. She has no questions or concerns at this time. Vital signs appropriate , afebrile. PO intake tolerated: yes Flatus: yes Ambulation: yes Vital Signs (12 hours) Temp Pulse Resp BP 05/31/18 07:43 98.0 F 75 20 110/55 L 05/31/18 05:16 98.7 F 85 16 05/31/18 05:15 98.5 F 86 16 98/65 05/31/18 00:00 98.7 F 85 16 106/55 L 05/30/18 20:00 98.6 F 78 16 101/53 L Weight Weight 64.41 kg - Physical Examination General: NAD Cardiovascular: no m/r/g, RRR Respiratory: clear to auscultation bilaterally, non-labored breathing Abdominal: + bowel sounds, appropriately TTP Fundus firm & at: 3 cm below umbilicus Skin: no rash Psychiatric: A&Ox3, normal affect Result Diagrams: 05/31/18 05:13 Additional Labs: Post Labs Blood Type O POSITIVE 05/30/18 02:38 Hep Bs Antigen Non-Reactive S/CO (NonReactive) 05/30/18 02:38 (1) Spontaneous vaginal delivery Code(s): O80 - ENCOUNTER FOR FULL-TERM UNCOMPLICATED DELIVERY Status: Acute Comment: Patient doing well. Continue routine care. Expect she will be ready for discharge at 24 hours after delivery, later today. Patient will need follow up in 6 weeks with myself. (2) Positive GBS test Code(s): B95.1 - STREPTOCOCCUS, GROUP B, CAUSING DISEASES CLASSD ELSWHR Status : Acute Comment: Adequately treated with PCN x 4 while in labor. (3) Anemia affecting Code(s): O99.019 - ANEMIA COMPLICATING , UNSPECIFIED TRIMESTER Status : Acute Comment: Patient with Hgb drop from 8.4 to 6.8 after delivery. EBL of 400 mL. She is currently asymptomatic. Continue oral iron therapy BID and colace for 6 weeks. Minimal bleeding since delivery. - Assessment/Plan Plan: -continue oral iron therapy -possible discharge later today <Reinier Monroe - Last Filed: 05/31/18 07:49> Vital Signs (12 hours) Temp Pulse Resp BP 05/31/18 11:13 98.5 F 81 20 103/57 L 05/31/18 08:00 98.0 F 75 20 05/31/18 07:43 98.0 F 75 20 110/55 L 05/31/18 05:16 98.7 F 85 16 05/31/18 05:15 98.5 F 86 16 98/65 05/31/18 00:00 98.7 F 85 16 106/55 L Weight Weight 64.41 kg Result Diagrams: 05/31/18 05:13 Additional Labs: Post Labs Blood Type O POSITIVE 05/30/18 02:38 Hep Bs Antigen Non-Reactive S/CO (NonReactive) 05/30/18 02:38 <Caro Antonio - Last Filed: 05/31/18 11:17> Attending Addendum - Attending Addendum Date/Time: 05/31/18 1114 I personally evaluated the patient and discussed the management with Dr. Monroe I agree with the History, Examination, Assessment and Plan documented above with any addition or exceptions noted below. 22 yo [id number] PPD #1 s/p uncomplicated . Pt denies dizziness with ambulation, CP, SOB or palpatations. 1. day #1 -Meeting appropriate milestones -Anticipate d/c to home on PPD #2 2. Acute blood loss anemia in setting of chronic anemia of -Will give 1 unit PRBCs to compensate for ongoing losses through lochia -Will do iron infusion for longer term improvement of iron stores <Caro Antonio - Last Filed: 05/31/18 11:17>
[2018-05-31] MEDS: Ferrous Sulfate 325 MG TAB PO SCH ×2 (09:40→17:17)
[2018-05-31] MEDS: Prenatal Vitamin 1 TAB PO SCH (09:40)
[2018-05-31] MEDS: Docusate Calcium (SURFAK) 240 MG CAP PO SCH ×2 (09:40→21:29)
[2018-05-31] MEDS ORDERED: Sodium Ferric Gluconate 250 MG in Sodium Chloride 0.9% 100 ML IVPB SCH (10:30)
[2018-06-01] MEDS: Ibuprofen 800 MG TAB PO SCH ×2 (05:26→13:46)
[2018-06-01 05:36] LABS: Hemoglobin 7.7 g/dL (12.0-16.0); Platelet Count 239 thou/uL (130-400)
--- NOTE | 2018-06-01 07:07 | PDOC.PP ---
Post Progress Note Post Day #: 2 Subjective: Patient continues to do well today. She is ambulating, eating and sleeping well. She is voiding and passing gas. Patient has not yet stooled. She complains of mild cramping, controlled with Motrin JESSIE and [place] [employer] PRN. Patient denies fever, headache, vision changes, or NVD. PO intake tolerated: yes Flatus: yes Ambulation: yes Vital Signs (12 hours) Temp Pulse Resp BP 05/31/18 23:56 98.6 F 05/31/18 20:00 97.7 F 80 16 116/58 L Weight Weight 64.41 kg - Physical Examination General: NAD Cardiovascular: no m/r/g, RRR Respiratory: clear to auscultation bilaterally, non-labored breathing Abdominal: + bowel sounds, lochia (minimal) Fundus firm & at: 3cm below umbilicus Neurological: no gross focal deficits Psychiatric: A&Ox3, normal affect Result Diagrams: 06/01/18 05:12 Additional Labs: Post Labs Blood Type O POSITIVE 05/30/18 02:38 Hep Bs Antigen Non-Reactive S/CO (NonReactive) 05/30/18 02:38 (1) Term Code(s): Z34.80 - ENCOUNTER FOR SUPRVSN OF NORMAL , UNSP TRIMESTER Status: Acute - Assessment/Plan Patient is a 22 yo F [id number] recovering from an uncomplicated . Patient is ambulating, voiding and stooling. Denies headache, fever, or N/V/D. 1. Term - meeting appropriate milestones - discharge later today 2. Anemia of - Hgb on 06/01 is 7.7 after administration of 1u PRBCs - continue iron and stool softener for 6 weeks PP <Celi Alatorre - Last Filed: 06/01/18 07:59> Vital Signs (12 hours) Temp Pulse Resp BP 06/01/18 08:00 98.8 F 81 18 108/62 05/31/18 23:56 98.6 F Weight Weight 64.41 kg Result Diagrams: 06/01/18 05:12 Additional Labs: Post Labs Blood Type O POSITIVE 05/30/18 02:38 Hep Bs Antigen Non-Reactive S/CO (NonReactive) 05/30/18 02:38 <Caro Antonio - Last Filed: 06/01/18 11:34> Attending Addendum - Attending Addendum Date/Time: 06/01/18 1132 I personally evaluated the patient and discussed the management with Dr. Alatorre I agree with the History, Examination, Assessment and Plan documented above with any addition or exceptions noted below. 1. -Meeting appropriate milestones -D/C to home today -Routine PP counseling completed 2. Acute blood loss anemia in setting of chronic anemia of -Appropriate rise in hemoglobin after 1 unit PRBC -s/p iron infusion yesterday -Asymptomatic <Caro Antonio - Last Filed: 06/01/18 11:34>
[2018-06-01] MEDS: Docusate Calcium (SURFAK) 240 MG CAP PO SCH (08:41)
[2018-06-01] MEDS: Prenatal Vitamin 1 TAB PO SCH (08:41)
[2018-06-01] MEDS: Ferrous Sulfate 325 MG TAB PO SCH (08:41)
[2018-06-01 08:45] VITALS: BP 108/62; TEMP 98.8
== END 2018-06-01 15:24 | disposition home or self-care (01) | DRG 775 ==
LOC: L&D 01:57 → 3SW 13:24
PROVIDERS: ADMIT Family Medicine; ATTEND Family Medicine
PROC: 10E0XZZ Delivery of Products of Conception, External Approach (ICD-10-PCS; principal; 2018-05-30)
PROC: 30233N1 Transfusion of Nonautologous Red Blood Cells into Peripheral Vein, Percutaneous Approach (ICD-10-PCS; 2018-05-31)
DX: O99.824 Streptococcus B carrier state complicating childbirth (principal); D62 Acute posthemorrhagic anemia; O99.02 Anemia complicating childbirth; D64.9 Anemia, unspecified; O99.03 Anemia complicating the puerperium; O76 Abnormality in fetal heart rate and rhythm complicating labor and delivery; Z3A.38 38 weeks gestation of pregnancy; Z37.0 Single live birth
CPT/HCPCS: 36415; 36430; 51702; 85014; 85018; 85027; 85049; 86780; 86850; 86900; 86901; 87340; 90715; 99285; A4216; J2001; J2405; J2540; J2590; J2916; J3010; J7050; P9016

== ENCOUNTER 2018-12-01 15:14 | Emergency (ER) | payer OTHER ==
[2018-12-01 15:58] LABS: Hemoglobin 12.6 g/dL (12.0-16.0); Mean Corpuscular HGB CONC 32.9 g/dL (32.0-36.0); Mean Corpuscular Hemoglobin 24.6 pg (27.0-31.0); Mean Corpuscular Volume 74.8 fL (78.0-98.0); Platelet Count 344 thou/uL (130-400); RBC Distribution Width 15.3 % (11.5-14.5); Red Blood Cell (RBC) Count 5.13 mill/uL (4.20-5.40)
--- NOTE | 2018-12-01 15:58 | RAD ---
2 VIEW CHEST: Date: 12/01/18 HISTORY: Chest pain. FINDINGS: Lung philip are clear. Heart and mediastinum unremarkable. Osseous structures unremarkable. IMPRESSION: Unremarkable chest. POS: [facility]
[2018-12-01 16:13] LABS: ALT (SGPT) 13 U/L (8-55); AST (SGOT) 16 U/L (5-34); Albumin 4.7 g/dL (3.5-5.0); Alkaline Phosphatase 106 U/L (40-150); Anion Gap 13 mmol/L (10-20); BUN (Urea Nitrogen) 11 mg/dL (7.0-18.7); Bilirubin, Total 0.2 mg/dL (0.2-1.2); CK (CPK) 135 U/L (29-168); Calc. Creatinine Clearance 0 mL/min (70-130); Calcium 9.6 mg/dL (7.8-10.44); Carbon Dioxide 25 mmol/L (22-29); Chloride 105 mmol/L (98-107); Estimated GFR-MDRD 68; Globulin 3.2 g/dL (2.4-3.5); Glucose 108 mg/dL (70-105); Lipase 31 U/L (8-78); Potassium 4.3 mmol/L (3.5-5.1); Protein, Total 7.9 g/dL (6.0-8.3); Sodium 139 mmol/L (136-145)
[2018-12-01 16:20] LABS: #Basophils 0.1 thou/uL (0.0-0.2); #Eosinphils 0.4 thou/uL (0.0-0.7); #Lymphocytes 3.2 thou/uL (1.20-3.40); #Monocytes 0.5 thou/uL (0.11-0.59); #Neutrophils 3.8 thou/uL (1.40-6.50); %Basophils 0.8 % (0.0-1.0); %Eosinophils 4.8 % (0.0-10.0); %Lymphocytes 40.2 % (21.0-51.0); %Monocytes 6.3 % (0.0-10.0); %Neutrophils 47.9 % (42.0-75.0); Anisocytosis SLIGHT = 6-15 cells (100X) (0-5/hpf); Hypochromia SLIGHT = 6-15 cells (100X) (0-5/hpf); MDiff Complete? YES; PLT Morphology Comment Appears Adequate
[2018-12-01] MEDS ORDERED: Ibuprofen 800 MG TAB ONE (17:54)
--- NOTE | 2018-12-05 15:24 | EKG ---
Test Reason : Blood Pressure : / mmHG Vent. Rate : 079 BPM Atrial Rate : 079 BPM P-R Int : 160 ms QRS Dur : 078 ms QT Int : 398 ms P-R-T Axes : 060 065 071 degrees QTc Int : 456 ms Normal sinus rhythm Possible Left atrial enlargement Borderline ECG Confirmed by ALMA THEODORE ([id number]), managing editor CHADD THOMPSON ([id number]) on 12/05/2018 3:23:28 PM Referred By: Confirmed By:ALMA THEODORE
== END 2018-12-01 18:40 | disposition home or self-care (01) ==
LOC: ERS 15:14
DX: R07.2 Precordial pain (principal); F41.9 Anxiety disorder, unspecified
CPT/HCPCS: 36415; 71046; 80053; 82550; 83690; 84484; 85025; 85379; 93005

== ENCOUNTER 2019-07-06 11:38 | Day surgery (SDC) | payer OTHER ==
[2019-07-06 12:16] VITALS: BMI 24.1
[2019-07-06] MEDS ORDERED: hydrALAZINE 20 MG/ML VIAL SLOW IVP PRN (13:06)
--- NOTE | 2019-07-06 13:34 | PDOC.FPROB ---
FMR OB H&P: HPI - History of Present Illness Chief Complaint: loss of fluid Indentification: 24 yo History of Present Illness: Presents to L&D for concern of LOF. Reports losing mucus-like glob yesterday, slept through the night, then continued to have clear and cloudy discharge today. Reports [place] ctx starting today around 1400. Denies painful ctx. Denies VB. Continues to feel fetus move. Complications of thus far include placenta previa as seen on f/u US. She saw [facility] and was told she still might be able to deliver vaginally since previa was visualized early on in and might move. Otherwise, she reports her ~3-yr old son jumped on her abdomen 2 days ago. She last had intercourse 3 days ago. Primary Care Physician: [facility]: Dr. Celi Alatorre FMR OB H&P: Current - Care : 4 Para: 3003 Gestational age: 25.2 Due date: 10/17/19 Dating Criteria: 13.5 week US Course/Complications: placenta previa - OB Labs Blood type: O RH: positive Antibody Screen: unknown HIV: negative RPR: negative HepBsAg: negative Rubella: immune Quad screen: unknown Gonorrhea: negative Chlamydia: negative Pap Smear: NILM A1c: 5.4 GBS: unknown FMR OB H&P: History - Past Medical History PMH: Anxiety. - OB History OB History: x3 all between 37-38 weeks, each 6-8 lbs. G1: no complications G2: reports losing fluid and going into labor the next day. 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 - Social History Social History: Denies smoking, alcohol, drug use. FMR OB H&P: Medications - Current Home Medications: Medication Instructions Recorded Confirmed Type No Known 07/06/19 07/06/19 History Allergies/Adverse Reactions: Allergies Allergy/AdvReac Type Severity Reaction Status Date / Time No Known Allergies Allergy Verified 05/13/18 14:13 FMR OB H&P: ROS - Review of Systems General: reports: recent trauma (see HPI). denies: fever/chills Eyes: denies: vision changes ENT: denies: nasal congestion, sore throat Cardiovascular: denies: chest pain, palpitation, edema Respiratory: reports: shortness of breath (related to changes). denies: cough, congestion Gastrointestinal: reports: nausea (when son jumped on her). denies: abdominal pain, cramping, vomiting, diarrhea, constipation Genitourinary (Female): reports: vaginal discharge (see HPI). denies: incontinence, dysuria, hematuria, vaginal pain, vaginal bleeding, contractions Musculoskeletal: denies: pain Neurologic: reports: headache (mild headache currently, no headaches usually) Integumentary: denies: itching, rash Hematologic/Lymphatic: denies: prolonged or excessive bleeding Psychological: reports: anxiety. denies: depression FMR OB H&P: Vital Signs - Maternal Vital signs: BP: 101/55 Temp: 98.7 F HR: 68 - Heart Tones Baseline: 140 (reactive) Variability: moderate Acceleration: present Deceleration: absent [place] contractions every: none FMR OB H&P: Physical Exam - Physical Exam General: NAD, awake, alert and oriented HEENT: normocephalic and atraumatic Neck: supple, trachea midline, no LAD Chest: non-tender to palpation Heart: RRR, normal S1/S2, no murmurs/rubs/gallops, no edema General: CTAB, no respiratory distress Abdomen: soft, gravid, non-tender, bowel sound present Musculoskeletal: pulses present Neurological: no focal deficit Skin: no rash Lymphatic: no unusual bruising or bleeding Psychiatric: normal mood and affect - Pelvic Exam Vulva: appropriate micah stage, no masses Cervix: no lesions, no blood (appears closed, cloudy white discharge noted, no pooling of clear fluid) SVE: deferred due to history of placenta previa. FMR OB H&P: Results - Imaging Imaging: Abd US ordered for previa evaluation and presentation. FMR OB H&P: A/P - Problem List (1) Current Visit: Yes Status: Acute Disposition: Monitor in OB triage pending results in plan. Discussion: Date/Time: 07/06/19 1334 24-yo who presents w/ concern for LOF: complicated by placenta previa: - Amnisure, VP3 collected - UA and urine culture collected to assess for bactieruria - Abdominal US to evaluate placental location and presentation - Cervical exam: deferred - If no previa, TVUS for cervical length to rule out labor - Continue and toco monitoring and await results. Iva Marshall MD PGY-1 Interval results: Amnisure: negative for ROM VP3: negative UA: 0-3 epithelial cells, rare/few bacteria, other WNL. Unlikely representing infection, more likely skin contaminant. Abdominal US: Anterior placenta. Fetus is vertex. Placental tip is noted and does not appear to be near the expected region of the inner cervical os. Limited evaluation of the cervical os and cervical length due to shadowing. However, length documented at 4.09 cm. Patient is stable. Will call patient w/ results of urine culture. Return precautions given. Discussed results w/ patient. Follow up w/ care and other specialists as usual. This H&P was discussed with Dr. Maradiaga and Dr. Randhawa who agree with the above documentation and plan.
[2019-07-06 13:53] LABS: Amnisure Test No Membranes Rupture (No Rupture)
[2019-07-06 13:54] LABS: Amnisure Internal Control QC ACCEPTABLE (ACCEPTABLE)
[2019-07-06 14:20] LABS: Bilirubin Negative (Negative); Blood, Urine Negative (Negative); Clarity Clear (Clear); Glucose, Urine (Dipstick) Normal (Negative); Leukocyte Negative Leu/uL (Negative); Nitrite Negative (Negative); Protein, Urine (Dipstick) Negative (Neg-Trace); RBC/HPF 0-3 HPF (0-3); Squamous Epithelial 0-3 HPF (0-3); Urobilinogen Normal mg/dL (Less than 2); WBC/HPF None Seen HPF (0-3)
[2019-07-06 14:35] LABS: Bacteria/HPF Rare-Few HPF (None Seen)
--- NOTE | 2019-07-06 15:00 | ULT ---
Exam: Limited OB ultrasound HISTORY: Evaluate for position. Placenta previa. TECHNIQUE: Limited evaluation of the gravid uterus FINDINGS: Single intrauterine gestation. Vertex presentation heart tones with a rate of 131-133 bpm Anterior placenta. No evidence of previa. Limited evaluation of the cervix due to shadowing IMPRESSION: Anterior placenta. Placental tip is noted and does not appear to be near the expected reg ion of the inner cervical os. Limited evaluation of the cervical os and cervical length due to shadowing.
== END 2019-07-06 15:27 | disposition home or self-care (01) ==
LOC: L&D/OP 11:38
PROVIDERS: ATTEND Student in an Organized Health Care Education/Training Program
DX: O99.89 Other specified diseases and conditions complicating pregnancy, childbirth and the puerperium (principal); N89.8 Other specified noninflammatory disorders of vagina; O99.342 Other mental disorders complicating pregnancy, second trimester; F41.9 Anxiety disorder, unspecified; Z3A.25 25 weeks gestation of pregnancy
CPT/HCPCS: 76815; 81001; 84112; 87086; 87480; 87510; 87660; 99284

== ENCOUNTER 2019-07-08 02:00 | Day surgery (SDC) | payer OTHER ==
[2019-07-08] MEDS ORDERED: hydrALAZINE 20 MG/ML VIAL SLOW IVP PRN (02:24)
[2019-07-08 02:39] VITALS: BMI 24.1
[2019-07-08 03:12] LABS: Bacteria/HPF 2+ HPF (None Seen); Bilirubin Negative (Negative); Blood, Urine Negative (Negative); Clarity Clear (Clear); Glucose, Urine (Dipstick) Normal (Negative); Leukocyte 250 Leu/uL (Negative); Nitrite Negative (Negative); Protein, Urine (Dipstick) Negative (Neg-Trace); RBC/HPF None Seen HPF (0-3); Urobilinogen Normal mg/dL (Less than 2); WBC/HPF 0-3 HPF (0-3)
--- NOTE | 2019-07-08 03:41 | PDOC.FPROB ---
FMR OB H&P: HPI - History of Present Illness Chief Complaint: Loss of Fluid History of Present Illness: Pt is a 24 yo at 25.4 wks by 13.5 wk US who presents with loss of fluid. She says at 11 pm she went to go use the bathroom and after she felt like there was a leakage of fluid. She said she got her to bring her a cup and she collected the fluid. She said she had it happen again about 30 minutes later. She said she came in 2 days ago for the same symptoms. She had a loss of fluid with her 2nd child and so she worried it was happening again. Primary Care Physician: EV FMR OB H&P: Current - Care : 4 Para: 3003 Gestational age: 25.4 Due date: 10/17/19 Dating Criteria: 13.5 wk US - OB Labs Blood type: O RH: positive Antibody Screen: unknown HIV: negative RPR: negative HepBsAg: negative Rubella: immune Gonorrhea: negative Chlamydia: negative Pap Smear: NILM A1c: 5.4 FMR OB H&P: History - Past Medical History PMH: None - OB History OB History: Placenta Previa x3 all between 37-38 weeks, each 6-8 lbs. G1: no complications G2: reports losing fluid and going into labor the next day. G3: PPH requiring blood transfusion - Surgical History Sx History: None - Social History Social History: Denies use of recreational drugs, alcohol, and tobacco products. - Family History Family History: No defects in family. Mom-cervical cancer FMR OB H&P: Medications - Current Home Medications: Medication Instructions Recorded Confirmed Type No Known 07/06/19 07/06/19 History Allergies/Adverse Reactions: Allergies Allergy/AdvReac Type Severity Reaction Status Date / Time No Known Allergies Allergy Verified 07/08/19 02:35 FMR OB H&P: ROS - Review of Systems General: denies: fever/chills ENT: denies: nasal congestion, rhinorrhea Cardiovascular: denies: chest pain Respiratory: denies: shortness of breath Gastrointestinal: denies: abdominal pain, nausea, vomiting, diarrhea, constipation Genitourinary (Female): denies: dysuria Musculoskeletal: denies: pain, tenderness Neurologic: denies: numbness, weakness Integumentary: denies: itching, rash Endocrine: denies: polydipsia FMR OB H&P: Vital Signs - Maternal Vital signs: BP: 113/72 HR: 86 RR: 18 Temp:98.7 - Heart Tones Baseline: 140 Variability: moderate Acceleration: present Deceleration: absent Category: category 1 FMR OB H&P: Physical Exam - Physical Exam General: NAD HEENT: normocephalic and atraumatic, MMM, oropharynx clear, good dention Neck: supple Heart: RRR, normal S1/S2 General: CTAB Abdomen: soft, gravid, non-tender, bowel sound present Musculoskeletal: normal gait and station, pulses present Neurological: no focal deficit Skin: no rash Lymphatic: no unusual bruising or bleeding Psychiatric: normal mood and affect FMR OB H&P: Results - Labs Lab results: Laboratory Results - last 24 hr 07/08/19 02:55 Urine Color Colorless Urine Clarity Clear Urine pH 7.0 Ur Specific [place] 1.004 Urine Protein Negative Urine Glucose (UA) Normal Urine Ketones Negative Urine Blood Negative Urine Nitrite Negative Urine Bilirubin Negative Urine Urobilinogen Normal Ur Leukocyte Esterase 250 A Urine RBC None Seen Urine WBC 0-3 Ur Squamous Epith Cells 7-10 A Urine Bacteria 2+ A FMR OB H&P: A/P - Problem List (1) Second trimester Status: Acute Code(s): Z34.92 - ENCNTR FOR SUPRVSN OF NORMAL PREG, UNSP, SECOND TRIMESTER Disposition: 24 yo at 25.4 wks by 13.5 wk US presents with loss of fluid. 1. Normal 2nd Trimester * Speculum exam revealed no loss of fluid * UA was clean * Amnisure is negative. Will D/c Discussion: Date/Time: 07/08/19340 This H&P was discussed with [] and [] who agree with the above documentation and plan. Addendum - Attending - Attending Attestation Date/Time: 07/08/191920 I discussed the management with Drs. Sow and Deon. I agree with the History, Examination, Assessment and Plan documented above with any addition or exceptions noted below.
[2019-07-08 03:59] LABS: Bacteria/HPF None Seen HPF (None Seen); Bilirubin Negative (Negative); Blood, Urine Negative (Negative); Clarity Clear (Clear); Glucose, Urine (Dipstick) Normal (Negative); Leukocyte Negative Leu/uL (Negative); Nitrite Negative (Negative); Protein, Urine (Dipstick) Negative (Neg-Trace); RBC/HPF 0-3 HPF (0-3); Squamous Epithelial 0-3 HPF (0-3); Urobilinogen Normal mg/dL (Less than 2); WBC/HPF 0-3 HPF (0-3)
[2019-07-08 04:02] LABS: Urine Culture Reflex No No
[2019-07-08 04:51] LABS: Amnisure Test No Membranes Rupture (No Rupture)
[2019-07-08 04:52] LABS: Amnisure Internal Control QC ACCEPTABLE (ACCEPTABLE)
--- NOTE | 2019-07-08 08:30 | ULT ---
BIOPHYSICAL PROFILE: INDICATIONS: Question premature rupture of membranes. FINDINGS: TONE SCORE: 2 BREATHING SCORE: 2 MOVEMENT SCORE: 2 AMNIOTIC FLUID SCORE: 2 TOTAL SCORE: 8/8 [place]: 14.5 cm. HEART RATE: 131 beats per minute. POSITION: Vertex. PLACENTA: Anterior. POS: [facility]
== END 2019-07-08 05:18 | disposition home or self-care (01) ==
LOC: L&D/OP 02:00
PROVIDERS: ATTEND Family Medicine
DX: O99.89 Other specified diseases and conditions complicating pregnancy, childbirth and the puerperium (principal); N89.8 Other specified noninflammatory disorders of vagina; Z3A.25 25 weeks gestation of pregnancy
CPT/HCPCS: 76819; 81001; 84112; 99285

== ENCOUNTER 2019-09-28 13:00 | Day surgery (SDC) | payer OTHER ==
[2019-09-28 13:33] VITALS: BMI 27.6
--- NOTE | 2019-09-28 15:17 | PDOC.FPROB ---
Addendum entered and electronically signed by Malik Strickland DO 09/28/19 16:38: I saw this patient with Dr. Sow and agree with the above documentation. further plan pending 2 hr check. Original Note: FMR OB H&P: HPI - History of Present Illness Chief Complaint: Contractions History of Present Illness: Pt is a 24 yo F at 37.2 by LMP (01/10/19) with a history of gestational anemia who presents for contractions. She said the contractions started last night. They lasted for 3 hours and were 30 minutes a part. This morning at 8 am she started having contractions again and they have since continued, but is unsure how far a part they are today. She went to clinic and was found to be 3/ 50/-2, which she was checked last week and found to be 2/50/-3. She endorses good movement, nausea, and vaginal discharge. She denies an loss of fluid , vaginal bleeding, edema, headaches, or vision changes. 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 - Family History Family History: Mom: DM2, HTN, and endometrial cancer Maternal Aunt: Endometrial cancer FMR OB H&P: Medications - Current Home Medications: Medication Instructions Recorded Confirmed Type Multivitamin [Gummi Bear 2 chw PO DAILY 09/28/19 09/28/19 History Multivitamin] Allergies/Adverse Reactions: Allergies Allergy/AdvReac Type Severity Reaction Status Date / Time No Known Allergies Allergy Verified 09/28/19 13:38 FMR OB H&P: ROS - Review of Systems General: denies: fever/chills Eyes: denies: vision changes ENT: denies: nasal congestion, rhinorrhea, sinus pain/pressure Cardiovascular: denies: edema Respiratory: denies: cough, shortness of breath Gastrointestinal: denies: abdominal pain Genitourinary (Female): reports: vaginal discharge, contractions. denies: vaginal pain, vaginal bleeding, vaginal pressure Musculoskeletal: denies: pain, tenderness Neurologic: denies: numbness, weakness, headache Integumentary: denies: itching, rash Hematologic/Lymphatic: denies: enlarged lymph nodes Psychological: reports: anxiety FMR OB H&P: Vital Signs - Maternal Vital signs: T: 98.5 HR: 86 BP: 113/72 - Heart Tones Baseline: 140 Variability: moderate Acceleration: present Deceleration: absent Category: category 1 [place] contractions every: 5 minutes FMR OB H&P: Physical Exam - Physical Exam General: NAD, awake, alert and oriented HEENT: normocephalic and atraumatic, PERRLA, MMM, conjunctiva clear, oropharynx clear, good dention Neck: supple, trachea midline, no LAD Chest: non-tender to palpation Heart: RRR, normal S1/S2 General: CTAB, no respiratory distress, good air movement, no rales/rhonchi, no wheezing, no retractions Abdomen: soft, gravid, non-tender, bowel sound present Musculoskeletal: pulses present, FROM in all four extremities Neurological: cranial nerves II through XII intact Skin: no rash Lymphatic: no unusual bruising or bleeding, no LAD Psychiatric: normal mood and affect - Pelvic Exam SVE: 3/Thick/-3 FMR OB H&P: A/P - Problem List (1) Term Status: Acute Code(s): Z34.80 - ENCOUNTER FOR SUPRVSN OF NORMAL , UNSP TRIMESTER Disposition: Pt is a 24 yo @ 37.2 wks by LMP who presents for contractions. 1. Contractions * No loss of fluid or vaginal bleeding * Good movement * Contractions every 5 minutes * Check at 2:30 pm on 09/28/19 3/Thick/-3 * Will keep on monitor and recheck cervix in 2 hours for change. Discussion: Date/Time: 09/28/19 6521 This H&P was discussed with [] and [] who agree with the above documentation and plan. Addendum - Attending - Attending Attestation Date/Time: 9801 I personally evaluated the patient and discussed the management with Dr. Sow and Dr. Strickland I agree with the History, Examination, Assessment and Plan documented above with any addition or exceptions noted below. 24 yo female at 37.2 wks present for labor check. Patient with contractions throughout the day. Noted to be 3 cm at OV. Will monitor for 2 hours. Hydration and ambulate. NST reactive. Cat 1 tracing with q 5 min ctx. Minimal discomfort noted by patient. No other complaints. ABrayMD
--- NOTE | 2019-09-28 17:07 | PDOC.EVN ---
Event Note - Event Note Event Note: Pt was up walking the halls. She was put back on the monitor and re-checked and found to be unchanged. She was given precautions and reasons to return and d/c home. Addendum - Attending - Attending Attestation Date/Time: 09/28/19 5955 I personally evaluated the patient and discussed the management with Dr. Sow I agree with the History, Examination, Assessment and Plan documented above with any addition or exceptions noted below. Repeat exam by myself unchanged. Ryne
[2019-09-29] MEDS ORDERED: FLU VACC QS2019-20(6MOS UP)/PF 60 MCG/0.5 ML SYRINGE IM ONE (09:00)
== END 2019-09-28 16:37 | disposition home health service (06) ==
LOC: L&D/OP 13:00
PROVIDERS: ATTEND Student in an Organized Health Care Education/Training Program
DX: O47.1 False labor at or after 37 completed weeks of gestation (principal); O99.013 Anemia complicating pregnancy, third trimester; D64.9 Anemia, unspecified; Z3A.37 37 weeks gestation of pregnancy
CPT/HCPCS: 99283

== ENCOUNTER 2019-10-08 10:34 | Inpatient (IN) | payer OTHER ==
--- NOTE | 2019-10-08 12:25 | PDOC.FPRHP ---
- History of Present Illness Chief Complaint: Contractions History of Present Illness: Pt is a 24 yo F at 38.5 by LMP (01/10/19) with a history of gestational anemia who presents for contractions. She said the contractions started yesterday around 11 am. The progressed through the day from 15 min, 7 min, 5 min a part and lasting about 30 seconds. This morning at 9 am she started having contractions again and they have since continued, but is unsure how far a part they are today. Last week in clinic she was found to be 3/50/-2, and the week before she was found to be 2/50/-3. She endorses good movement, nausea, bloody discharge, and clear vaginal discharge. She denies an loss of fluid, edema, headaches, or vision changes. Today her check is 4/60/-2 with a bulging bag felt during contractions. : 4 Para: 3003 Gestational age: 38.5 Due date: 10/20/19 Dating Criteria: LMP Total weight gain: N/A Course/Complications: Anemia Blood type: O RH: positive Antibody Screen: negative HIV: negative RPR: negative HepBsAg: negative Rubella: immune Gonorrhea: negative Chlamydia: negative Pap Smear: 04/21/19 Normal A1c: 5.4% GBS: negative H&H: 8.9/28.1% Platelets: 286 - Allergies/Adverse Reactions Allergies Allergy/AdvReac Type Severity Reaction Status Date / Time No Known Allergies Allergy Verified 10/08/19 13:36 - Home Medications Medication Instructions Recorded Confirmed Type Multivitamin [Gummi Bear 2 chw PO DAILY 09/28/19 10/08/19 History Multivitamin] - History PMH: None OB History: Gestational Anemia 3 Term in 2013, 2015, and 2018 ROLL HAND History: Menarche: 15 Period Length: 6 days Interval: 21 days Pap (04/21/19)- Normal Sx History: None Social History: Denies alcohol, tobacco, and drug use. Family History: Mom: DM2, HTN, and endometrial cancer Maternal Aunt: Endometrial cancer Jaundice: her and 2 sons Asthma: Mom, Aunts, and Uncles - Review of Systems General: denies: fever/chills Eyes: denies: vision changes ENT: denies: nasal congestion, rhinorrhea Respiratory: denies: cough, congestion, shortness of breath Cardiovascular: denies: chest pain, edema Gastrointestinal: reports: nausea. denies: vomiting, diarrhea Genitourinary: reports: discharge. denies: dysuria Skin: denies: rashes Musculoskeletal: denies: pain, stiffness Neurological: denies: numbness, weakness - Vital signs BP: 11/66 HR: 77 Tmax: 98.5 Pox: 99% on RA Wt: [] - Physical Exam Constitutional: NAD, awake, alert and oriented HEENT: normocephalic and atraumatic, PERRLA, EOMI Neck: supple, no LAD Chest: no-tender to palpation Heart: RRR, normal S1/S2, no murmurs/rubs/gallops Lungs: CTAB, no respiratory distress, good air movement Abdomen: soft, non-tender, bowel sounds present -Abdomen: Pelvic pain Musculoskeletal: normal structure, normal tone, ROM grossly normal Neurological: CN II-XII intact Skin: no rash/lesions, good turgor, capillary refill <2 seconds, no jaundice Heme/Lymphatic: no unusual bruising or bleeding FMR H&P: A/P - Problem List (1) Term Current Visit: No Status: Acute Code(s): Z34.80 - ENCOUNTER FOR SUPRVSN OF NORMAL , UNSP TRIMESTER - Plan Pt is a 24 yo @ 38.5 wks by LMP who presents for contractions. 1. Contractions * No loss of fluid * Noted some vaginal bleeding * Good movement * Contractions every 5 minutes * Check at 1200 pm on 10/08/19 4/60/-2 * Will keep on monitor and recheck cervix in 2 hours for change. FMR H&P: Upper Level - Plan Date/Time: 10/08/19 6025 I, [], have evaluated this patient and agree with findings/plan as outlined by academic intern resident. Pertinent changes/additions are listed here. Addendum - Attending - Attending Attestation Date/Time: 10/08/19 6733 I personally evaluated the patient and discussed the management with Dr. Sow. I agree with the History, Examination, Assessment and Plan documented above with any addition or exceptions noted below.
[2019-10-08] MEDS ORDERED: Ondansetron ODT 4 MG TAB PO PRN (13:04)
[2019-10-08 13:22] VITALS: BMI 27.4
[2019-10-08] MEDS ORDERED: FLU VACC QS2019-20(6MOS UP)/PF 60 MCG/0.5 ML SYRINGE IM ONE (13:45)
--- NOTE | 2019-10-08 14:40 | PDOC.BPN ---
- Brief Progress Note S: She is feeling well. She does not want labor augmentation. O: Check is -/-1 @ 2:20 A&P: We will keep 2 more hours and monitor for any further change.
[2019-10-08] MEDS ORDERED: Ibuprofen 800 MG TAB PO PRN (16:36)
[2019-10-08] MEDS ORDERED: hydrALAZINE 20 MG/ML VIAL SLOW IVP PRN (16:36)
[2019-10-08] MEDS ORDERED: Promethazine HCl 25 MG/ML VIAL IM PRN (16:36)
[2019-10-08] MEDS ORDERED: Butorphanol Tartrate 1 MG/ML VIAL SLOW IVP PRN (16:36)
[2019-10-08] MEDS ORDERED: Docusate 100 MG CAP PO PRN (16:36)
[2019-10-08] MEDS ORDERED: Ondansetron PF 4 MG/2 ML Vial IVP PRN (16:36)
[2019-10-08] MEDS ORDERED: Acetaminophen 500 MG TAB PO PRN (16:36)
[2019-10-08] MEDS ORDERED: Lidocaine 1% (PF) 30 ML VIAL SC PRN (16:36)
[2019-10-08] MEDS ORDERED: Diphenoxylate HCl/Atropine Tablet PO PRN (16:39)
[2019-10-08] MEDS ORDERED: Methylergonovine 0.2 MG/ML VIAL IM PRN (16:39)
[2019-10-08] MEDS ORDERED: Carboprost 250 MCG/ML AMP IM PRN (16:39)
[2019-10-08] MEDS ORDERED: Misoprostol 200 MCG TAB PR PRN (16:39)
[2019-10-08] MEDS ORDERED: Lactated Ringer's 1,000 ML IV SCH (16:45)
--- NOTE | 2019-10-08 16:46 | PDOC.BPN ---
<Christo Sow - Last Filed: 10/08/19 16:46> - Brief Progress Note S: She says contractions are more painful. She does not want labor augmentation. O: Check is /-1 @ 1625 A&P: Admit for delivery. <Jimy Lizama - Last Filed: 10/09/19 07:58> Addendum - Attending - Attending Attestation Date/Time: 10/09/19 9636 I personally evaluated the patient and discussed the management with Dr. Sow yesterday. I agree with the Assessment and Plan documented above with any addition or exceptions noted below.
[2019-10-08 18:47] LABS: Hemoglobin 9.1 g/dL (12.0-16.0); Mean Corpuscular HGB CONC 32.5 g/dL (32.0-36.0); Mean Corpuscular Hemoglobin 20.2 pg (27.0-31.0); Mean Corpuscular Volume 62.2 fL (78.0-98.0); Mean Platelet Volume 10.1 fL (7.4-10.4); Platelet Count 306 thou/uL (130-400); RBC Distribution Width 15.7 % (11.5-14.5); White Blood Cell (WBC) Count 11.5 thou/uL (4.8-10.8)
--- NOTE | 2019-10-08 19:09 | PDOC.LDPN ---
Labor & Delivery Progress Note - Subjective Subjective: comfortable, painful contractions - Objective Vital signs reviewed and normal: yes General: NAD, breathing through contractions Uterine fundus: non tender SVE: 1829 Dilation: 6.5 Effacement: 75% Station: -1 FHT: category 1 (accels present), variability present [place] contractions every: 2-3 min Other exam findings: bag intact - Assessment (1) Term Code(s): Z34.80 - ENCOUNTER FOR SUPRVSN OF NORMAL , UNSP TRIMESTER Current Visit: No Status: Acute (2) Anemia affecting Code(s): O99.019 - ANEMIA COMPLICATING , UNSPECIFIED TRIMESTER Current Visit: No Status: Acute Comment: Patient with Hgb drop from 8.4 to 6.8 after delivery. EBL of 400 mL. She is currently asymptomatic. Continue oral iron therapy BID and colace for 6 weeks. Minimal bleeding since delivery. Plan: continue plan of care -: Pt is a 24 yo @ 38.5 wks by LMP who presents in labor #Term in labor - 6.5//-1 @ 1830 - Cat1 strip with contractions 2-3min - Intact - Good movement - Cont to monitor on monitoring, cont expectant management IVF: LR @ 125cc/hr Diet: NPO ATTENDING ADDENDUM: agree with above. AROM next check if no change.
[2019-10-08 19:29] LABS: Syphilis Antibody Nonreactive (Nonreactive); Syphilis Antibody Index 0.05 S/CO (<1.00 Non-Reactive)
[2019-10-08 19:32] LABS: HBSAg Index 0.26 S/CO (0-0.99); Hep B Surf Ag Non-Reactive S/CO (NonReactive)
--- NOTE | 2019-10-08 23:21 | PDOC.LDPN ---
Labor & Delivery Progress Note - Subjective Subjective: painful contractions, no concerns - Objective Vital signs reviewed and normal: yes General: NAD, breathing through contractions SVE: 10:00 Dilation: 7 Effacement: 75% Station: -1 FHT: category 1, variability present [place] contractions every: 3-4 minutes Other exam findings: Bag intact - Assessment (1) Anemia affecting Code(s): O99.019 - ANEMIA COMPLICATING , UNSPECIFIED TRIMESTER Current Visit: No Status: Acute Comment: Patient with Hgb drop from 8.4 to 6.8 after delivery. EBL of 400 mL. She is currently asymptomatic. Continue oral iron therapy BID and colace for 6 weeks. Minimal bleeding since delivery. (2) Current Visit: No Status: Acute Plan: continue plan of care -: Pt is a 24 yo @ 38.5 wks by LMP who presents in labor #Term in labor - /-1 @ 2200 - Cat1 strip with contractions 2-3min - Intact - Good movement - Cont to monitor on monitoring, cont expectant management -Pt is going to walk around. Will have pt on monitor intermittently. Will recheck in an hour for possible AROM. IVF: LR @ 125cc/hr Diet: NPO
[2019-10-09] MEDS ORDERED: Misoprostol 200 MCG TAB ONE (00:05)
[2019-10-09] MEDS: NS / Oxytocin 40 units/1000ml 1,000 ML IV PRN ×2 (00:10→01:39)
--- NOTE | 2019-10-09 00:22 | PDOC.OPDEL ---
Addendum entered and electronically signed by Celi Alatorre MD 10/09/19 00:35 : pitocine and cytotec given post delivery Original Note: OB Operative/Delivery Note Delivery Dr/Surgeon: Juanjose Alatorre Assist: Peter Pre-Delivery Diagnosis: active labor Procedure/Post Delivery Dx: spontaneous vaginal delivery Weeks gestation: 38 (38.5) Anesthesia: none - Findings A Sex: male - 1 min: 8 - 5 min: 9 - Additional Findings/Plan Placenta delivered: spontaneous Repaired Obstetrical Laceration: none Estimated blood loss: 300 Compilations/Other Findings: Delivery Note: This is 24yo F [id number] @ 38.5wks who delivered a viable M infant at 2358 on 10/08/19. Following an antepartum course, complicated by anemia of , a vigorous M was delivered over an intact perineum in the OA position. Anterior Shoulder and then remainder of the body delivered. No nuchal cord. The head was held down and mouth and nares were bulb suctioned. Cord clamped after delayed cord clamping and cut and cord blood collected. Placenta delivered intact in the Hansen presentation with a 3 vessel cord noted. Marginal insertion of cord. Villamentous artery along the lenght of the cord. Sent to pathology. Fundal massage was performed and the fundus was firm. The cervix and vagina were inspected and found to be free of lacerations. Infant went to nursery in good condition for routine care. Apgars were 8 /9 at 1 & 5 minutes, respectively. Patient tolerated delivery well and went to after routine recovery/care. Post delivery plan: routine recovery Addendum - Attending - Attending Attestation Date/Time: 10/09/19 0141 I personally evaluated the patient and discussed the management with Dr. Alatorre I agree with the History, Examination, Assessment and Plan documented above with any addition or exceptions noted below. I was present for the entire delivery. After delivery of placenta and initial fundal massage, patient had a large volume of blood expelled from the uterus with additional fundal massage. Bimanual exam was performed and clots manually removed from the lower uterine segment which resolved the bleeding. Cytotec 1000 mcg was rectally placed. QBL 300mL. Patient tolerated the procedure well. routine care.
--- NOTE | 2019-10-09 01:33 | PDOC.PP ---
Post Progress Note Post Day #: 1 Subjective: NAEO. Patient resting comfortably in bed. States she is having some abdominal crampy like pain in her abdomen. She states this has been somewhat controlled with tylenol and motrin. She states she is tolerating fluids, she was able to ambulate to the bathroom and back. She is passing gas but no BM yet. Denies any headache, NVD, chest pain, SOB, LE edema, vision changes. PO intake tolerated: yes Flatus: no Ambulation: yes Weight Weight 68.039 kg - Physical Examination General: NAD Cardiovascular: no m/r/g, RRR Respiratory: clear to auscultation bilaterally, non-labored breathing Abdominal: + bowel sounds, lochia, no distention, appropriately TTP Skin: no rash Neurological: no gross focal deficits Psychiatric: A&Ox3, normal affect Result Diagrams: 10/09/19 23:43 Additional Labs: Post Labs Blood Type O POSITIVE 10/08/19 17:52 Hep Bs Antigen Non-Reactive S/CO (NonReactive) 10/08/19 17:52 - Assessment/Plan [id number] delivered viable M via on 10/08 @ 2358. # PPD 1 from - Pain controlled with tylenol and motrin. If pain continues, can add norco if needed. - Tolerating PO, passing flatus, ambulating well. No BM. Bowel regimen in place. - Minimal lochia, will continue to monitor. - PP contraception: plan for IUD - Patient is going to bottle feed, not breast #Anemia of - Hgb 9.1 prior to delivery. Hx of needing transfusion after last delivery. Will repeat H/H at 1500 on 10/09. EBL 300ml. Patient with no symptoms currently. - Iron BID, bowel regimen in place Dispo: dc in 1-2 days Case discussed with Dr. Randhawa Addendum - Attending - Attending Attestation Date/Time: 10/19/192201 I personally evaluated the patient and discussed the management with on 10/09/19 I agree with the History, Examination, Assessment and Plan documented above with any addition or exceptions noted below. Pain controlled. Lochia normal. Afeb. Fundus Firm. Continue current care.
[2019-10-09] MEDS ORDERED: Lanolin Ointment 7 GM TUBE TOP PRN (01:43)
[2019-10-09] MEDS ORDERED: Milk Of Magnesia 30 ML UDCUP PO PRN (01:43)
[2019-10-09] MEDS ORDERED: Bisacodyl 10 MG SUPP PR PRN (01:43)
[2019-10-09] MEDS ORDERED: Acetaminophen 500 MG TAB PO SCH (05:45)
[2019-10-09] MEDS ORDERED: Ibuprofen 800 MG TAB PO PRN (06:53)
[2019-10-09] MEDS: Ibuprofen 800 MG TAB PO SCH ×3 (07:15→21:16)
[2019-10-09] MEDS ORDERED: Adacel (T-DAP) 0.5 ML SYRINGE IM ONE (09:00)
[2019-10-09] MEDS: Docusate Calcium (SURFAK) 240 MG CAP PO SCH ×2 (09:30→21:16)
[2019-10-09] MEDS: Ferrous Sulfate 325 MG TAB PO SCH ×2 (09:30→18:14)
[2019-10-09] MEDS ORDERED: Benzocaine-Menthol 82.5 ML CAN TOP PRN (11:52)
[2019-10-09 23:47] LABS: Hemoglobin 7.6 g/dL (12.0-16.0)
[2019-10-10] MEDS: Ibuprofen 800 MG TAB PO SCH ×3 (02:39→13:47)
--- NOTE | 2019-10-10 05:33 | PDOC.PP ---
Post Progress Note Post Day #: 2 Subjective: Doing well this morning, in good spirits. Pain well-controlled. Lochia decreased , less than normal period. Tolerating PO well without n/v. Ambulating well. Voiding without difficulty. +BM. Mild edema of hands and feet. No CP, SOB, fever /chills. Breast feeding. Eager for discharge today. Denies any dizziness/ lightheadedness. PO intake tolerated: yes Flatus: yes Ambulation: yes Vital Signs (12 hours) Temp Pulse Resp BP Pulse Ox 10/09/19 20:40 99 10/09/19 20:20 98.4 F 86 12 100/54 L 99 10/09/19 17:40 98.6 F 83 12 105/55 L 99 Weight Weight 68.039 kg - Physical Examination General: NAD Cardiovascular: no m/r/g, RRR Respiratory: clear to auscultation bilaterally, non-labored breathing Abdominal: + bowel sounds, lochia (decreased, less than normal period per pt), no distention, appropriately TTP Fundus firm & at: slightly below umbilicus Extremities: negative homans (B) Neurological: no gross focal deficits Psychiatric: A&Ox3, normal affect Result Diagrams: 10/09/19 23:43 Additional Labs: Post Labs Blood Type O POSITIVE 10/08/19 17:52 Hep Bs Antigen Non-Reactive S/CO (NonReactive) 10/08/19 17:52 (1) Term Code(s): Z34.80 - ENCOUNTER FOR SUPRVSN OF NORMAL , UNSP TRIMESTER Status: Acute (2) Anemia affecting Code(s): O99.019 - ANEMIA COMPLICATING , UNSPECIFIED TRIMESTER Status : Acute Comment: Patient with Hgb drop from 8.4 to 6.8 after delivery. EBL of 400 mL. She is currently asymptomatic. Continue oral iron therapy BID and colace for 6 weeks. Minimal bleeding since delivery. - Assessment/Plan [id number] delivered viable M via on 10/08 @ 2062. # PPD 2 from - Pain controlled with tylenol and motrin. - Tolerating PO, BM, ambulating well. Voiding without difficulty. Lochia decreased. - PP contraception: plan for IUD - Patient is going to bottle feed, not breast - Eager for discharge today. Would like baby circumcised. #Anemia of - Hgb 9.1 prior to delivery. Hx of needing transfusion after last delivery. EBL 300ml. Patient with no symptoms currently. - Repeat Hb 7.6 - Iron BID, bowel regimen in place Dispo: Plan for discharge today pending baby bilirubin and circ. Case discussed with Dr. Fong Addendum - Attending - Attending Attestation Date/Time: 10/10/19 2038 I personally evaluated the patient and discussed the management with Dr. Hal Sow I agree with the History, Examination, Assessment and Plan documented above with any addition or exceptions noted below - Patient without complaints. Afebrile VSS. A/P: 1) PPD @2 s/p - plan to d/c home today. F/u @ [facility] in 2 weeks. .
[2019-10-10] MEDS: Docusate Calcium (SURFAK) 240 MG CAP PO SCH (08:40)
[2019-10-10] MEDS: Ferrous Sulfate 325 MG TAB PO SCH (08:40)
[2019-10-10 12:23] VITALS: BP 101/60; TEMP 98.3
--- NOTE | 2019-10-13 07:47 | PQF ---
Anabela Ferrera ANNA MD [id number] CLINICAL DOCUMENTATION CLARIFICATION FORM: POST DISCHARGE Addendum to original discharge summary date: ____ Late entry note date: __ DATE:10/13/2019 ATTN:JOSE GLASER MD Please exercise your independent, professional judgment in responding to the clarification form. Clinical indicators are provided on the bottom of this form for your review Please check appropriate box(s): [ ] Acute blood loss anemia [ ] Post-op anemia related to acute blood loss [ ] Anemia: [ ] Aplastic [ ] Nutritional [ ] Drug induced (specify) ___ [ ] Hemolytic [ ] Hereditary [ ] Acquired [ ] Autoimmune [ ] Non-autoimmune [ ] Enzyme disorder [ ] Chronic Anemia: [ ] Blood loss [ ] Hemolytic [ ] Simple [ ] Due to Vitamin B12 Deficiency [ ] Other [ ] Anemia of Chronic Disease (please specify) [ ] Anemia due to Neoplasm: [ ] Primary [ ] Secondary [ ] Anemia due to (please choose): [ ] Due to Chemotherapy [ ] Due to Radiotherapy [ ] Due to Immunotherapy [ ] Other diagnosis [ ] Unable to determine For continuity of documentation, please document condition throughout progress notes and discharge summary. Thank You. CLINICAL INDICATORS - SIGNS / SYMPTOMS / LABS Anemia affecting -Documented in progress note on 10/10 by Marko Sow BP-100/54-Documented in progress note on 10/10 by Marko Sow Hgb drop from 8.4 to 6.8 after delivery-Documented in progress note on 10/10 by Marko Sow EBL of 400 ml-Documented in progress note on 10/10 by Marko Sow Minimal bleeding since delivery-Documented in progress note on 10/10 by Marko Sow PPD 2 from -Documented in progress note on 10/10 by Marko Sow HGB-9.1 to 7.6,HCT-28.0 to 23.8-Documented in laboratory RISK FACTORS PPD 2 from -Documented in progress note on 10/10 by Marko Sow TREATMENTS: Continue oral iron therapy BID and colace for 6 weeks-Documented in progress note on 10/10 by Marko Sow [employer] Writer [employer] (This form is maintained as a part of the permanent medical record) 2014 [employer]. All Rights Reserved [email or web address] [not provided] [email or web address]
== END 2019-10-10 14:08 | disposition home or self-care (01) | DRG 807 ==
LOC: L&D/OP 10:34 → L&D 16:37 → UNDOADMIN 10-09 00:40 → 3SW 10-09 02:20 → L&D 10-09 02:20
PROVIDERS: ADMIT Family Medicine; ATTEND Family Medicine
PROC: 10E0XZZ Delivery of Products of Conception, External Approach (ICD-10-PCS; principal; 2019-10-09)
DX: O99.02 Anemia complicating childbirth (principal); Z37.0 Single live birth; D64.9 Anemia, unspecified; Z3A.38 38 weeks gestation of pregnancy
CPT/HCPCS: 36415; 85014; 85018; 85027; 86780; 86850; 86900; 86901; 87340; 88307; 99285; J2001

== ENCOUNTER 2022-05-22 13:04 | Emergency (ER) | payer OTHER ==
[2022-05-22 13:59] LABS: #Basophils 0.1 thou/uL (0.0-0.2); #Eosinphils 0.2 thou/uL (0.0-0.7); #Lymphocytes 2.9 thou/uL (1.20-3.40); #Monocytes 0.5 thou/uL (0.11-0.59); #Neutrophils 4.8 thou/uL (1.40-6.50); %Basophils 0.7 % (0.0-1.0); %Eosinophils 2.2 % (0.0-10.0); %Lymphocytes 34.5 % (21.0-51.0); %Neutrophils 56.5 % (42.0-75.0); Hemoglobin 14.6 g/dL (12.0-16.0); Mean Corpuscular HGB CONC 33.5 g/dL (32.0-36.0); Mean Corpuscular Hemoglobin 30.1 pg (27.0-31.0); Mean Corpuscular Volume 89.7 fL (78.0-98.0); Mean Platelet Volume 6.9 fL (7.4-10.4); Platelet Count 293 thou/uL (130-400); RBC Distribution Width 12.1 % (11.5-14.5); Red Blood Cell (RBC) Count 4.86 mill/uL (4.20-5.40); White Blood Cell (WBC) Count 8.5 thou/uL (4.8-10.8)
[2022-05-22 14:20] LABS: ALT (SGPT) 12 U/L (8-55); AST (SGOT) 13 U/L (5-34); Albumin 4.3 g/dL (3.5-5.0); Alkaline Phosphatase 80 U/L (40-110); Anion Gap 12 mmol/L (10-20); BUN (Urea Nitrogen) 12 mg/dL (7.0-18.7); Bilirubin, Total 0.4 mg/dL (0.2-1.2); Calc. Creatinine Clearance 0 mL/min (70-130); Calcium 9.6 mg/dL (7.8-10.44); Carbon Dioxide 25 mmol/L (22-29); Chloride 108 mmol/L (98-107); Estimated GFR 101; Globulin 2.8 g/dL (2.4-3.5); Glucose 103 mg/dL (70-105); Potassium 3.8 mmol/L (3.5-5.1); Protein, Total 7.1 g/dL (6.0-8.3); Sodium 141 mmol/L (136-145)
== END 2022-05-22 14:52 | disposition home or self-care (01) ==
LOC: ERS 13:04
DX: R07.9 Chest pain, unspecified (principal); R53.1 Weakness
CPT/HCPCS: 36415; 71045; 80053; 85025; 93005; 96360

== ENCOUNTER 2023-02-05 13:26 | Emergency (ER) | payer OTHER ==
[~2023-02-05 13:26] MED LIST: Iopamidol-370 76% 500 ML 1 ML ONE
[2023-02-05 14:36] LABS: #Lymphocytes 2.3 thou/uL (1.20-3.40); #Neutrophils 7.1 thou/uL (1.40-6.50); %Basophils 0.2 % (0.0-1.0); %Eosinophils 0.4 % (0.0-10.0); %Lymphocytes 21.9 % (21.0-51.0); %Monocytes 9.8 % (0.0-10.0); %Neutrophils 67.7 % (42.0-75.0); Hemoglobin 14.4 g/dL (12.0-16.0); Mean Corpuscular HGB CONC 34.7 g/dL (32.0-36.0); Mean Corpuscular Volume 89.4 fl (78.0-98.0); Mean Platelet Volume 6.9 fL (7.4-10.4); Platelet Count 290 10x3/uL (130-400); RBC Distribution Width 11.5 % (11.5-14.5); Red Blood Cell (RBC) Count 4.64 mill/uL (4.20-5.40); White Blood Cell (WBC) Count 10.5 10x3/uL (4.8-10.8)
[2023-02-05 14:41] LABS: ALT (SGPT) 11 U/L (8-55); AST (SGOT) 17 U/L (5-34); Albumin 4.4 g/dL (3.5-5.0); Alkaline Phosphatase 86 U/L (40-110); Anion Gap 12 mmol/L (10-20); BUN (Urea Nitrogen) 24 mg/dL (7.0-18.7); Bilirubin, Total 0.7 mg/dL (0.2-1.2); Calc. Creatinine Clearance 0 mL/min (70-130); Calcium 9.3 mg/dL (7.8-10.44); Carbon Dioxide 26 mmol/L (22-29); Chloride 108 mmol/L (98-107); Estimated GFR 38; Globulin 2.9 g/dL (2.4-3.5); Glucose 95 mg/dL (70-105); Lipase 15 U/L (8-78); Potassium 3.5 mmol/L (3.5-5.1); Protein, Total 7.3 g/dL (6.0-8.3); Sodium 142 mmol/L (136-145)
[2023-02-05 14:44] LABS: BHCG - Serum Negative (NEGATIVE); Pregs Control Background? CLEAR/WHITE (CLR/WHITE); Pregs Control Bar Appear? YES (CONTROL BAR)
[2023-02-05] MEDS ORDERED: Ketorolac Tromethamine 30 MG/ML VIAL ONE (15:41)
[2023-02-05] MEDS ORDERED: Ondansetron ODT 4 MG TAB ONE (15:41)
[2023-02-05] MEDS ORDERED: Morphine 4 MG/ML VIAL ONE (15:41)
[2023-02-05 17:11] LABS: Bacteria/HPF 1+ HPF (None Seen); Bilirubin Negative (Negative); Blood, Urine 1+ (Negative); Clarity Clear (Clear); Glucose, Urine (Dipstick) Normal (Negative); Ketone, Urine Negative (Negative); Leukocyte Negative Leu/uL (Negative); Nitrite Negative (Negative); Protein, Urine (Dipstick) 20 mg/dL (Neg-Trace); Specific Gravity, Urine 1.007 (1.002-1.036); Squamous Epithelial 0-3 HPF (0-3); Urobilinogen Normal mg/dL (Less than 2); WBC/HPF 0-3 HPF (0-3); pH, Urine 5.5 (5.0-9.0)
== END 2023-02-05 18:45 | disposition home or self-care (01) ==
LOC: ERS 13:26
DX: R10.816 Epigastric abdominal tenderness (principal); N28.9 Disorder of kidney and ureter, unspecified; E86.0 Dehydration
CPT/HCPCS: 36415; 74177; 76705; 80053; 81003; 81015; 83690; 84703; 85025; 86140; 87086; 96372; 96374; J1885; J2270; Q0162; Q9967

== ENCOUNTER 2023-02-09 00:47 | Emergency (ER) | payer OTHER ==
[2023-02-09] MEDS ORDERED: LORazepam 2 MG/ML SYR.(CARPUJECT) ONE (00:59)
[2023-02-09] MEDS ORDERED: Mag-Al 1200 mg/1200 mg/30 ML UDCUP ONE (01:25)
[2023-02-09] MEDS ORDERED: Lidocaine Viscous Sol 2% 15 ml UD Cup ONE (01:25)
[2023-02-09 01:46] LABS: #Basophils 0.1 thou/uL (0.0-0.2); #Eosinphils 0.2 thou/uL (0.0-0.7); #Lymphocytes 3.5 thou/uL (1.20-3.40); #Monocytes 0.7 thou/uL (0.11-0.59); #Neutrophils 5.1 thou/uL (1.40-6.50); %Basophils 0.6 % (0.0-1.0); %Eosinophils 2.4 % (0.0-10.0); %Lymphocytes 36.9 % (21.0-51.0); %Monocytes 7.7 % (0.0-10.0); %Neutrophils 52.5 % (42.0-75.0); Hemoglobin 13.6 g/dL (12.0-16.0); Mean Corpuscular HGB CONC 35.7 g/dL (32.0-36.0); Mean Corpuscular Hemoglobin 32.2 pg (27.0-31.0); Mean Corpuscular Volume 90.2 fl (78.0-98.0); Mean Platelet Volume 7.1 fL (7.4-10.4); Platelet Count 276 10x3/uL (130-400); RBC Distribution Width 11.4 % (11.5-14.5); Red Blood Cell (RBC) Count 4.21 mill/uL (4.20-5.40); White Blood Cell (WBC) Count 9.6 10x3/uL (4.8-10.8)
[2023-02-09 02:09] LABS: ALT (SGPT) 35 U/L (8-55); AST (SGOT) 23 U/L (5-34); Albumin 4.1 g/dL (3.5-5.0); Alkaline Phosphatase 89 U/L (40-110); Anion Gap 13 mmol/L (10-20); BUN (Urea Nitrogen) 13 mg/dL (7.0-18.7); Bilirubin, Total 0.3 mg/dL (0.2-1.2); Calc. Creatinine Clearance 0 mL/min (70-130); Calcium 9.3 mg/dL (7.8-10.44); Carbon Dioxide 23 mmol/L (22-29); Chloride 108 mmol/L (98-107); Estimated GFR 50; Globulin 2.7 g/dL (2.4-3.5); Glucose 97 mg/dL (70-105); Lipase 82 U/L (8-78); Potassium 3.3 mmol/L (3.5-5.1); Protein, Total 6.8 g/dL (6.0-8.3); Sodium 141 mmol/L (136-145)
[2023-02-09 02:14] LABS: Bacteria/HPF None Seen HPF (None Seen); Bilirubin Negative (Negative); Blood, Urine Trace (Negative); Clarity Clear (Clear); Glucose, Urine (Dipstick) Normal (Negative); Ketone, Urine Negative (Negative); Leukocyte Negative Leu/uL (Negative); Nitrite Negative (Negative); Protein, Urine (Dipstick) Negative (Neg-Trace); Specific Gravity, Urine 1.007 (1.002-1.036); Squamous Epithelial 0-3 HPF (0-3); Urobilinogen Normal mg/dL (Less than 2); WBC/HPF 0-3 HPF (0-3); pH, Urine 5.5 (5.0-9.0)
[2023-02-09 02:27] LABS: Pregs Control Background? CLEAR/WHITE (CLR/WHITE); Pregs Control Bar Appear? YES (CONTROL BAR)
[2023-02-09 02:32] LABS: BHCG - Serum Negative (NEGATIVE)
[2023-02-09] MEDS ORDERED: FENTANYL 50 MCG/ML 1 ML VIAL ONE (03:35)
== END 2023-02-09 03:47 | disposition home or self-care (01) ==
LOC: ERS 00:47
DX: R10.13 Epigastric pain (principal)
CPT/HCPCS: 36415; 80053; 81003; 81015; 83690; 84703; 85025; 87086; 96372; 99284; J2060; J3010

== ENCOUNTER 2023-02-18 14:49 | Outpatient (CLI) | payer OTHER | END 2023-02-18 14:50 | disposition home or self-care (01) | LOC: SCSRAD 14:49 | PROVIDERS: ATTEND Family Medicine | DX: M25.552 Pain in left hip (principal) ==

== ENCOUNTER 2024-06-08 14:35 | Emergency (ER) | payer OTHER, SELFPAY ==
[2024-06-08 15:01] LABS: #Basophils 0.04 10x3/uL (0.0-0.2); %Basophils 0.3 % (0.0-1.0); %Eosinophils 1.7 % (0.0-10.0); %Lymphocytes 30.3 % (21.0-51.0); %Monocytes 6.2 % (0.0-10.0); %Neutrophils 61.1 % (42.0-75.0); Hematocrit 42.4 % (36.0-47.0); Hemoglobin 14.7 g/dL (12.0-16.0); Mean Corpuscular HGB CONC 34.7 g/dL (32.0-36.0); Mean Corpuscular Hemoglobin 29.7 pg (27.0-31.0); Mean Corpuscular Volume 85.7 fL (78.0-98.0); Mean Platelet Volume 9.2 fL (7.4-10.4); Platelet Count 309 10x3/uL (130-400); RBC Distribution Width 12.6 % (11.5-14.5); Red Blood Cell (RBC) Count 4.95 mill/uL (4.20-5.40)
[2024-06-08 15:27] LABS: ALT (SGPT) 14 U/L (8-55); AST (SGOT) 16 U/L (5-34); Albumin 4.2 g/dL (3.5-5.0); Alkaline Phosphatase 87 U/L (40-110); Anion Gap 10 mmol/L (10-20); BUN (Urea Nitrogen) 15 mg/dL (7.0-18.7); Bilirubin, Total 0.3 mg/dL (0.2-1.2); Calc. Creatinine Clearance 0 mL/min (70-130); Calcium 9.3 mg/dL (7.8-10.44); Carbon Dioxide 24 mmol/L (22-29); Chloride 106 mmol/L (98-107); Estimated GFR 90; Glucose 93 mg/dL (70-105); Potassium 3.9 mmol/L (3.5-5.1); Protein, Total 7.2 g/dL (6.0-8.3); Sodium 136 mmol/L (136-145)
[2024-06-08 16:13] LABS: Bacteria/HPF None Seen HPF (None Seen); Bilirubin Negative (Negative); Blood, Urine 2+ (Negative); CAUTI Indications for Culture Pelvic or flank pain; Clarity Clear (Clear); Glucose, Urine (Dipstick) Normal (Negative); Ketone, Urine Trace mg/dL (Negative); Leukocyte Negative Leu/uL (Negative); Nitrite Negative (Negative); Protein, Urine (Dipstick) 30 mg/dL (Neg-Trace); Specific Gravity, Urine 1.038 (1.002-1.036); WBC/HPF 0-3 HPF (0-3)
[2024-06-08 16:14] LABS: Pregnancy Test - Urine (BHCG) Negative (Negative); Pregu Control Background? CLEAR/WHITE (CLR/WHITE); Pregu Control Bar Appear? YES (CONTROL BAR); Specific Gravity 1.038 (1.002-1.036)
[2024-06-08 16:15] LABS: Urine Culture Reflex No No
[2024-06-08] MEDS ORDERED: Ibuprofen 800 MG TAB ONE (16:30)
== END 2024-06-08 17:10 | disposition home or self-care (01) ==
LOC: ERS 14:35
DX: R10.30 Lower abdominal pain, unspecified (principal); F17.290 Nicotine dependence, other tobacco product, uncomplicated
CPT/HCPCS: 36415; 76856; 80053; 81001; 81025; 85025